=== PATIENT | female | born 1960 | race Two or more races ===

== ENCOUNTER → 2020-07-18 11:19 | Outpatient (BNVA) | payer MEDICAID, SELFPAY | PROVIDERS: PCP Family Medicine; Referring Provider Family Medicine; Visit Provider Hospitalist | DX: Z76.89 Persons encountering health services in other specified circumstances (principal) ==

== ENCOUNTER → 2020-07-31 13:03 | Outpatient (BNVA) | payer MEDICAID, SELFPAY | PROVIDERS: PCP Family Medicine; Referring Provider Family Medicine; Visit Provider Nurse Practitioner Gerontology | DX: Z76.89 Persons encountering health services in other specified circumstances (principal) ==

== ENCOUNTER 2020-08-16 10:32 | Outpatient (REF) | payer MEDICAID, SELFPAY ==
--- NOTE | 2020-08-16 11:47 | XR_ITS ---
EXAMINATION: XR CHEST CLINICAL INFORMATION: Bronchitis. COMPARISON: 09/22/2019 chest radiographs. TECHNIQUE: 2 views of the chest were obtained. FINDINGS: A tracheostomy tube is again noted in place. The lungs are clear. The heart and mediastinal structures are unremarkable. Multilevel sternotomy wires are intact. XR/XR chest 2V IMPRESSION: Stable chest. No acute cardiopulmonary process.
[2020-08-16 11:59] LABS: MANUAL DIFF FLAG NO
[2020-08-16 12:02] LABS: Basophils Percent Auto 0.4 % (0-2); Eosinophils Absolute Auto 0.5 X10*3/uL (0.0-0.4); Eosinophils Percent Auto 6.8 % (0-4); Hemoglobin 12.6 g/dl (12.0-16.0); Imm Gran Abs Auto 0.01 X10*3/uL (0.00-0.03); Imm Gran Pct Auto 0.1 % (0.0-0.4); Lymphocytes Absolute Auto 1.5 X10*3/uL (1.2-4.9); Lymphocytes Percent Auto 20.3 % (20-40); Mean Corpuscular HGB Conc 34.1 g/dl (31.0-35.0); Mean Corpuscular Hemoglobin 28.9 pg (27.0-33.0); Mean Corpuscular Volume 84.9 fL (80-98); Mean Platelet Volume 9.5 fL (9.4-12.3); Monocytes Absolute Auto 0.4 X10*3/uL (0.1-1.2); Monocytes Percent Auto 4.9 % (2-11); Neutrophils Absolute Auto 4.9 X10*3/uL (2.0-8.3); Neutrophils Percent Auto 67.5 % (45-73); Platelet Count 207 X10*3/uL (160-400); Red Blood Count 4.36 X10*6/uL (4.20-5.50); Red Cell Distribution Width 13.5 % (11.0-16.0); White Blood Count 7.3 X10*3/uL (4.8-10.8)
[2020-08-16 12:31] LABS: Alanine Aminotransferase 21 U/L (0-31); Albumin Level 4.2 g/dL (3.5-5.0); Alkaline Phosphatase 72 U/L (39-117); Anion Gap 13 (12-20); Aspartate Amino Transferase 17 U/L (5-31); Bilirubin Direct 0.2 mg/dL (0.0-0.5); Bilirubin Total 0.3 mg/dL (0.0-1.0); Blood Urea Nitrogen 18 mg/dL (9-16); Calcium 9.3 mg/dL (8.4-10.2); Carbon Dioxide 26 mmol/L (22-29); Chloride 103 mmol/L (96-108); Estimated Glomerular Filt Rate 53; Glucose Random 142 mg/dL (60-115); Potassium 4.2 mmol/l (3.3-5.1); Sodium 138 mmol/L (135-145); Total Protein 6.7 g/dL (6.5-8.0)
[2020-08-16 12:39] LABS: Erythrocyte Sedimentation Rate 21 MM/HR (0-20)
[2020-08-16 12:47] LABS: Estimated Average Glucose 137 mg/dL; Hemoglobin A1C 140.9614 umol/L; Hemoglobin A1c % 6.4 %
[2020-08-17 05:04] LABS: SARS COV2 IgG Negative (Negative)
== END 2020-08-16 10:33 | disposition home or self-care (01) ==
LOC: HO.LAB 10:32
PROVIDERS: Nurse Practitioner Gerontology; PCP Family Medicine; Visit Provider Hospitalist
DX: J40 Bronchitis, not specified as acute or chronic (principal); Z20.828 Contact with and (suspected) exposure to other viral communicable diseases; E11.22 Type 2 diabetes mellitus with diabetic chronic kidney disease; N18.30 Chronic kidney disease, stage 3 unspecified; Z79.4 Long term (current) use of insulin
CPT/HCPCS: 36415; 71046; 80048; 80076; 83036; 85025; 85652; 86769; 99212

== ENCOUNTER → 2020-09-14 09:35 | Outpatient (BNVA) | payer MEDICAID, SELFPAY | PROVIDERS: PCP Family Medicine; Visit Provider Hospitalist | DX: I25.10 Atherosclerotic heart disease of native coronary artery without angina pectoris (principal); I50.9 Heart failure, unspecified; J45.909 Unspecified asthma, uncomplicated; J39.8 Other specified diseases of upper respiratory tract; J40 Bronchitis, not specified as acute or chronic; Z93.0 Tracheostomy status | CPT/HCPCS: 99212 ==

== ENCOUNTER 2020-10-11 08:38 | Emergency (ER) | payer MEDICAID, SELFPAY ==
--- NOTE | ~2020-10-11 | XR_ITS ---
EXAMINATION: XR CHEST CLINICAL INFORMATION: Bloody secretions in trach. COMPARISON: Chest radiographs 08/16/2020, 09/22/2019, 09/07/2018, CT chest noncontrast 04/28/2018 TECHNIQUE: Portable upright AP view of the chest was obtained. FINDINGS: There is tracheostomy tube in position and sternotomy wires again noted. Enlarged cardiopericardial silhouette is stable. There is tapering at the cardiophrenic angles again seen consistent with areolar tissue on CT. The vascularity is normal. There is no vascular congestion, airspace consolidation, air bronchograms, or effusion. The hilar and mediastinal contours and bony structures are unremarkable. XR/XR chest 1V IMPRESSION: No acute intrathoracic disease.
[2020-10-11 08:42] VITALS: BP 145/85; PULSE 88; RESP 18; TEMP 36.6; O2SAT 98; BMI 37.8
--- NOTE | 2020-10-11 10:06 | ED.GENADULT ---
HPI - General Adult General Chief complaint: General Medical <WENDY Foss - Last Filed: 10/11/20 12:03> Stated complaint: bleeding from trachea <WENDY Foss - Last Filed: 10/11/20 12:03> Time Seen by Provider: 10/11/20 09:06 <WENDY Foss - Last Filed: 10/11/20 12:03> Source: patient <WENDY Foss - Last Filed: 10/11/20 12:03> Mode of arrival: ambulatory <WENDY Foss - Last Filed: 10/11/20 12:03> Limitations: language barrier <WENDY Foss - Last Filed: 10/11/20 12:03> History of Present Illness HPI narrative: 60 y/o female iwth history of tracheal stenosis, trachomalacia s/p tracheostomy since 2012, HTN, HLD, CKD III, CAD s/p CABG 2012, PTSD, anxiety, migraines, DM2 and asthma presents with small amounts of bleeding at her tracheostomy site for the last 3 days. She also reports discomfort. She at times is short of breath. She denies increase in secretions, she denies fevers. No sick contacts. She denies trauma to the site. No chest pain. <WENDY Foss - Last Filed: 10/11/20 12:03> MD complaint: trach pain and bleeding <WENDY Foss - Last Filed: 10/11/20 12:03> Onset (ago): day(s) (3) <WENDY Foss - Last Filed: 10/11/20 12:03> Location: neck <WENDY Foss - Last Filed: 10/11/20 12:03> Radiation: non-radiation <WENDY Foss - Last Filed: 10/11/20 12:03> Severity: moderate <WENDY Foss Last Filed: 10/11/20 12:03> Severity scale (1-10): 5 <WENDY Foss - Last Filed: 10/11/20 12:03> Quality: aching <WENDY Foss - Last Filed: 10/11/20 12:03> Pain Consistency: intermittent <WENDY Foss - Last Filed: 10/11/20 12:03> Relieving factors: none <WENDY Foss - Last Filed: 10/11/20 12:03> Exacerbating factors: movement <WENDY Foss - Last Filed: 10/11/20 12:03> Associated symptoms: denies other symptoms <WENDY Foss - Last Filed: 10/11/20 12:03> Treatments prior to arrival: none <WENDY Foss - Last Filed: 10/11/20 12:03> Related Data Home medications: Home Medications Medication Instructions Recorded Confirmed bupropion HCl 100 mg tablet 100 mg PO BID 07/31/20 09/14/20 cholecalciferol (vitamin D3) 50 50 mcg PO DAILY 07/31/20 09/14/20 mcg (2,000 unit) capsule fenofibrate 54 mg tablet 54 mg PO DAILY 07/31/20 09/14/20 insulin lispro 100 unit/mL See Rx Instructions SUBCUT QID ml 07/31/20 09/14/20 subcutaneous pen levothyroxine 150 mcg tablet 150 mcg PO DAILY 07/31/20 09/14/20 metformin 500 mg/5 mL oral solution 1,000 mg PO BID 07/31/20 09/14/20 omega-3 fatty acids 1,000 mg 1,000 mg PO BID 07/31/20 09/14/20 capsule Previous Rx's Medication Instructions Recorded ezetimibe 10 mg tablet 10 mg PO DAILY 30 Days #30 tab 05/23/20 isosorbide mononitrate 30 mg 30 mg PO DAILY 90 Days #90 tab 05/26/20 tablet,extended release 24 hr lisinopril 5 mg tablet 5 mg PO QAM #30 tab 06/13/20 aspirin 81 mg tablet,delayed 81 mg PO DAILY 90 Days #90 tab 06/19/20 release furosemide 40 mg tablet 40 mg PO DAILY 90 Days #90 tab 06/19/20 metoprolol tartrate 25 mg tablet 25 mg PO BID 90 Days #180 tab 06/19/20 dulaglutide 1.5 mg/0.5 mL 1.5 mg SUBCUT QWEEK 28 Days #2 ml 07/31/20 subcutaneous pen injector doxycycline hyclate 100 mg capsule 100 mg PO BID 21 Days #42 cap 08/16/20 insulin glargine U-300 conc 300 70 unit SUBCUT DAILY #6 ml 09/10/20 unit/mL (3 mL) subcutaneous pen albuterol sulfate 90 mcg/actuation 2 inh INHALATION Q6H PRN 30 Days 09/14/20 aerosol inhaler #18 g prednisone 20 mg tablet 20 mg PO DAILY 10 Days #15 tab 09/14/20 azithromycin 500 mg tablet 500 mg PO DAILY 5 Days #5 tab 10/16/20 <WENDY Foss - Last Filed: 10/11/20 12:03> Allergies/adverse reactions: Allergies Allergy/AdvReac Type Severity Reaction Status Date / Time haloperidol [Haldol] Allergy Severe rash Verified 09/14/20 12:51 Sulfa (Sulfonamide Allergy Severe Rash Verified 09/14/20 12:51 Antibiotics) sulfamethoxazole Allergy Mild ITCHING/HIV Verified 09/14/20 12:51 [From BACTRIM] ES trimethoprim [From BACTRIM] Allergy Mild ITCHING/HIV Verified 09/14/20 12:51 ES Penicillins Allergy Unknown HIVES Verified 09/14/20 12:51 From HALDOL Allergy Mild RASH Uncoded 09/14/20 12:51 <WENDY Foss - Last Filed: 10/11/20 12:03> Review of Systems Review of Systems: Constitutional: No Fever, No Chills ENT/Mouth: No sore throat, No Rhinorrhea, No Swallowing Difficulty Cardiovascular: No Chest Pain, + SOB, No Orthopnea, No Edema Respiratory: + Cough (chronic), No Sputum, No Wheezing, No dyspnea Gastrointestinal: No Nausea, No Vomiting, No Diarrhea, No abdominal Pain Musculoskeletal: No joint pain, No Myalgias Skin: No Skin Lesions, No rash Neuro: No Weakness, No Numbness, No Dizziness, No Headache Psych: + Anxiety/Panic, No Depression Heme/Lymph: No Bruising, No Lymphadenopathy, +bleeding <WENDY Foss Last Filed: 10/11/20 12:03> [facility] Past Medical History Attestation statement: The following information was validated with the patient. 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 Urinary incontinence <WENDY Foss - Last Filed: 10/11/20 12:03> Surgical History: Surgical History Hx of CABG Hx of section Hx of tracheostomy <WENDY Foss - Last Filed: 10/11/20 12:03> Family History Family History: Family History Father Diabetes CVD (cardiovascular disease) Mother Diabetes Hypertension Schizophrenia <WENDY Foss - Last Filed: 10/11/20 12:03> Social History Social History: Social History Household Members: Spouse Smoking Status: Never smoker Use of substances other than those prescribed or required for medical reasons: No Advance Directives: No Advance Directives Information Provided: Yes <WENDY Foss - Last Filed: 10/11/20 12:03> Physical Exam Vital Signs: Vital Signs: Last Vital Signs Temp 98 F 10/11/20 08:42 Pulse 88 10/11/20 08:42 Resp 18 10/11/20 08:42 BP 145/85 H 10/11/20 08:42 Pulse Ox 98 10/11/20 08:42 Body Mass Index 37.8 Appearance: Alert. Oriented X3. No acute distress. Eyes: Pupils equal, round and reactive to light. ENT: Tracheotomy in place with very scant dried blood around tracheostomy site, no active bleeding. inner cannula removed with clear blood tinged secretions, no clots. Neck: Normal inspection. Neck supple. CVS: Normal heart rate and rhythm. Pulses normal. Respiratory: No respiratory distress. Breath sounds normal. Abdomen: Obese, soft and nontender. +BS x4 Skin: Skin warm and dry. Normal skin color. Normal skin turgor. No rashes. Extremities: No lower extremity edema. Neuro: Oriented X 3. No motor deficit. No sensory deficit. <WENDY Foss - Last Filed: 10/11/20 12:03> Vital Signs: Last Vital Signs Temp 98 F 10/11/20 08:42 Pulse 88 10/11/20 08:42 Resp 18 10/11/20 08:42 BP 145/85 H 10/11/20 08:42 Pulse Ox 98 10/11/20 08:42 Body Mass Index 37.8 <Blaine Mix MD - Last Filed: 10/31/20 07:57> Course Course Course Narrative: 60 y/o female with history of longterm tracheostomy who presents with some bleeding at tracheal site. No active bleeding on arrival. No hypoxia, CXR is unremarkable. She is breathing comfortably. The inner cannula has been cleaned. RT at the bedside, cleaned area and placed some gauze around the trach. Will TT Dr. Renteria to see if he would like to change the trach while she is here. ?may be too long for her. <WENDY Foss - Last Filed: 10/11/20 12:03> I have reviewed the chart <Blaine Mix MD - Last Filed: 10/31/20 07:57> Reevaluation(s) Reevaluation #1: Patient continues to do well without signs of bleeding. No hypoxia. No response from Dr. Renteria. No immediate need to change the trach at this time. Will have her follow up in the office with him. He would like to do a bronchoscopy HARINDER, she missed a recent appointment. He will coordinate one soon, hopefully tomorrow. Patient understands to be NPO after midnight tonight for bronch tomorrow. <WENDY Foss - Last Filed: 10/11/20 12:03> Discharge Plan Discharge Clinical Impression: Stomal bleeding <WENDY Foss - Last Filed: 10/11/20 12:03> Patient Disposition: Home, Self-Care <WENDY Foss - Last Filed: 10/11/20 12:03> Instructions: Tracheostomy Care (ED) <WENDY Foss - Last Filed: 10/11/20 12:03> Additional Instructions: Your tracheotomy has no active bleeding today. Recommend using gauze to the area to help prevent irritation and bleeding. Clean or change your inner cannula at least once per day. Follow up with Dr. Renteria in the office tomorrow. He would like to do a bronchoscopy. Call his office HARINDER. Do not eat or drink anything after midnight tonight with plan for Bronchoscopy tomorrow. If you have worsening bleeding, pain or any other concerning symptom come back to the ER for further evaluation. <WENDY Foss - Last Filed: 10/11/20 12:03> Prescriptions: No Action ezetimibe 10 mg tablet 10 mg PO DAILY 30 Days Qty: 30 RF: 5 isosorbide mononitrate 30 mg tablet extended release 24 hr 30 mg PO DAILY 90 Days Qty: 90 RF: 1 lisinopril 5 mg tablet 5 mg PO QAM Qty: 30 RF: 6 furosemide [Lasix] 40 mg tablet 40 mg PO DAILY 90 Days Qty: 90 RF: 1 aspirin [Adult Low Dose Aspirin] 81 mg tablet,delayed release (DR/EC) 81 mg PO DAILY 90 Days Qty: 90 RF: 3 metoprolol tartrate 25 mg tablet 25 mg PO BID 90 Days Qty: 180 RF: 1 insulin glargine U-300 conc [Toujeo Max U-300 SoloStar] 300 unit/mL (3 mL) insulin pen 70 unit subcut DAILY Qty: 6 RF: 2 azithromycin 500 mg tablet 500 mg PO DAILY 5 Days Qty: 5 RF: 0 insulin lispro [Humalog KwikPen Insulin] 100 unit/mL insulin pen See Rx Instructions subcut QID RF: 0 metformin [Riomet] 500 mg/5 mL solution 1,000 mg PO BID RF: 0 levothyroxine 150 mcg tablet 150 mcg PO DAILY RF: 0 cholecalciferol (vitamin D3) 50 mcg (2,000 unit) capsule 50 mcg PO DAILY RF: 0 fenofibrate 54 mg tablet 54 mg PO DAILY RF: 0 omega-3 fatty acids [Fish Oil Concentrate] 1,000 mg capsule 1,000 mg PO BID RF: 0 bupropion HCl 100 mg tablet 100 mg PO BID RF: 0 Trulicity 1.5 mg/0.5 mL pen injector 1.5 mg subcut QWEEK 28 Days Qty: 2 RF: 6 doxycycline hyclate 100 mg capsule 100 mg PO BID 21 Days Qty: 42 RF: 0 prednisone 20 mg tablet 20 mg PO DAILY 10 Days Qty: 15 RF: 0 albuterol sulfate 90 mcg/actuation HFA aerosol inhaler 2 inh inhalation Q6H PRN (Reason: shortness of breath or wheezing) 30 Days Qty: 18 RF: 12 <WENDY Foss - Last Filed: 10/11/20 12:03> Referrals: Lauro Renteria MD [Physician] - 1 day <WENDY Foss - Last Filed: 10/11/20 12:03> Interventions: ED Discharge Assessment Last Done: 10/11/20 11:33 <WENDY Foss - Last Filed: 10/11/20 12:03> Discharge Date/Time: 10/11/20 11:34 <WENDY Foss - Last Filed: 10/11/20 12:03>
--- NOTE | 2020-10-11 10:42 | PC.NURSE ---
new trach cleaned by respiratory. satting 96% on ra.
== END 2020-10-11 11:34 | disposition home or self-care (01) ==
PROVIDERS: Emergency Provider Emergency Medicine; PCP Family Medicine
DX: J95.01 Hemorrhage from tracheostomy stoma (principal); E11.22 Type 2 diabetes mellitus with diabetic chronic kidney disease; I13.0 Hypertensive heart and chronic kidney disease with heart failure and stage 1 through stage 4 chronic kidney disease, or unspecified chronic kidney disease; N18.30 Chronic kidney disease, stage 3 unspecified; I50.9 Heart failure, unspecified; J45.909 Unspecified asthma, uncomplicated; Z79.84 Long term (current) use of oral hypoglycemic drugs; Z79.899 Other long term (current) drug therapy; Z87.891 Personal history of nicotine dependence
CPT/HCPCS: 71045; 99284

== ENCOUNTER 2020-10-12 09:59 | Day surgery (SDC) | payer MEDICAID, SELFPAY ==
--- NOTE | 2020-10-11 14:44 | P.CONAN_ITS ---
Documented by User: Denise Sandi 10/11/20 14:45 HPI - Anesthesia Eval Consult details Narrative: 60yo F for Bronchoscopy Fiberoptic Trach dependant Seen by cardiology at routine visit 09/14/20. No anginal sounding CP. Thought to be MSK Continue current regimen with 1 year f/u Pt cx'd self 09/27/20 [facility] Active Problems Active Problems: All Active Problems (Updated 10/11/20 @ 11:15 by WENDY Foss) Stomal bleeding (Acute) Asthma (Acute) Tracheal stenosis (Acute) Tracheostomy dependent (Acute) Type 2 diabetes mellitus with chronic kidney disease (Acute) Chronic kidney disease, stage 3 (Acute) Essential hypertension (Acute) Dyslipidemia (Acute) Hypothyroidism (Acute) CAD (coronary artery disease) (Acute) Tracheobronchitis (Acute) Past Medical History Medical History Anxiety Asthma CAD (coronary artery disease) CHF (congestive heart failure) Chronic kidney disease, stage 3 Dyslipidemia Dysphagia Essential hypertension Fibroid uterus Hypothyroidism Ischemic cardiomyopathy Tracheal stenosis 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 Urinary incontinence Family History Family History Father Diabetes CVD (cardiovascular disease) Mother Diabetes Hypertension Schizophrenia Surgical History Surgical History Hx of CABG Hx of section Hx of tracheostomy Social History Social History Household Members: Spouse Smoking Status: Never smoker Use of substances other than those prescribed or required for medical reasons: No Advance Directives: No Advance Directives Information Provided: Yes Meds Allergies Allergy/AdvReac Type Severity Reaction Status Date / Time haloperidol [Haldol] Allergy Severe rash Verified 09/14/20 12:51 Sulfa (Sulfonamide Allergy Severe Rash Verified 09/14/20 12:51 Antibiotics) sulfamethoxazole Allergy Mild ITCHING/HIV Verified 09/14/20 12:51 [From BACTRIM] ES trimethoprim [From BACTRIM] Allergy Mild ITCHING/HIV Verified 09/14/20 12:51 ES Penicillins Allergy Unknown HIVES Verified 09/14/20 12:51 From HALDOL Allergy Mild RASH Uncoded 09/14/20 12:51 Home Medications Medication Instructions Recorded Confirmed Last Taken Type bupropion HCl 100 mg tablet 100 mg PO BID 07/31/20 09/14/20 Unknown History cholecalciferol (vitamin D3) 50 50 mcg PO DAILY 07/31/20 09/14/20 Unknown History mcg (2,000 unit) capsule fenofibrate 54 mg tablet 54 mg PO DAILY 07/31/20 09/14/20 Unknown History insulin lispro 100 unit/mL See Rx Instructions SUBCUT QID ml 07/31/20 09/14/20 Unknown History subcutaneous pen levothyroxine 150 mcg tablet 150 mcg PO DAILY 07/31/20 09/14/20 Unknown History metformin 500 mg/5 mL oral solution 1,000 mg PO BID 07/31/20 09/14/20 Unknown History omega-3 fatty acids 1,000 mg 1,000 mg PO BID 07/31/20 09/14/20 Unknown History capsule Exam Exam Date and Time: October 11, 2020 1444 Pertinent Lab Results Pertinent Lab Results: Laboratory Tests 08/16/20 08/16/20 11:40 11:40 WBC 7.3 Hgb 12.6 Hct 37.0 Plt Count 207 Sodium 138 Potassium 4.2 Chloride 103 Carbon Dioxide 26 BUN 18 H Creatinine 1.06 Narrative Narrative: ECHO 2019 EF 50-55% No valve pathology RWMA cannot be r/o d/t poor cardiac definition Assessment and Plan Assessment Anesthesia Assessment: Chart Reviewed Documented by User: Medardo Booth 10/12/20 11:02 [facility] Past Medical History Medical History Anxiety Asthma CAD (coronary artery disease) CHF (congestive heart failure) Chronic kidney disease, stage 3 Dyslipidemia Dysphagia Essential hypertension Fibroid uterus Hypothyroidism Ischemic cardiomyopathy Tracheal stenosis 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 Urinary incontinence Family History Family History Father Diabetes CVD (cardiovascular disease) Mother Diabetes Hypertension Schizophrenia Surgical History Surgical History Hx of CABG Hx of section Hx of tracheostomy Social History Social History Household Members: Spouse Smoking Status: Never smoker Use of substances other than those prescribed or required for medical reasons: No Advance Directives: No Advance Directives Information Provided: Yes Meds Allergies Allergy/AdvReac Type Severity Reaction Status Date / Time haloperidol [Haldol] Allergy Severe rash Verified 09/14/20 12:51 Sulfa (Sulfonamide Allergy Severe Rash Verified 09/14/20 12:51 Antibiotics) sulfamethoxazole Allergy Mild ITCHING/HIV Verified 09/14/20 12:51 [From BACTRIM] ES trimethoprim [From BACTRIM] Allergy Mild ITCHING/HIV Verified 09/14/20 12:51 ES Penicillins Allergy Unknown HIVES Verified 09/14/20 12:51 From HALDOL Allergy Mild RASH Uncoded 09/14/20 12:51 Home Medications Medication Instructions Recorded Confirmed Last Taken Type bupropion HCl 100 mg tablet 100 mg PO BID 07/31/20 09/14/20 Unknown History cholecalciferol (vitamin D3) 50 50 mcg PO DAILY 07/31/20 09/14/20 Unknown History mcg (2,000 unit) capsule fenofibrate 54 mg tablet 54 mg PO DAILY 07/31/20 09/14/20 Unknown History insulin lispro 100 unit/mL See Rx Instructions SUBCUT QID ml 07/31/20 09/14/20 Unknown History subcutaneous pen levothyroxine 150 mcg tablet 150 mcg PO DAILY 07/31/20 09/14/20 Unknown History metformin 500 mg/5 mL oral solution 1,000 mg PO BID 07/31/20 09/14/20 Unknown History omega-3 fatty acids 1,000 mg 1,000 mg PO BID 07/31/20 09/14/20 Unknown History capsule Exam Airway Mallampati Class: III TM Dist: >3cm Neck ROM: Full Denture: Upper and Lower
[2020-10-12] VITALS (12 sets, daily range): BP systolic 108–145; BP diastolic 49–98; PULSE 86–112; RESP 17–24; TEMP 36.2–36.3; O2SAT 88–99; BMI 40.1
[2020-10-12] MEDS: Lactated Ringers 1,000 ML 50 ML IVCONT (11:16)
[2020-10-12 11:20] LABS: Glucose, Whole Blood 150 mg/dL (60-115)
--- NOTE | 2020-10-12 12:03 | P.HPSUR_ITS ---
Pre-Procedural Eval Section A The patient is an INPATIENT: No Changes since office visit: No Cold of Flu in the past 2 weeks, No New Medical Problems, No Changes in Medication and No Patient answered all questions The History & Physical has been completed within 30 days and I have reviewed it.: Yes Section B Chief Complaint: tracheostomy Relevant Family History (Specify if Yes): No Relevant Social History: None Present Medications: see Short Stay Collaborative assessment Medical History: Significant History History of Previous Operations: Relevant previous surgery/procedure and date(s) Allergies: Allergies Allergy/AdvReac Type Severity Reaction Status Date / Time haloperidol [Haldol] Allergy Severe rash Verified 09/14/20 12:51 Sulfa (Sulfonamide Allergy Severe Rash Verified 09/14/20 12:51 Antibiotics) sulfamethoxazole Allergy Mild ITCHING/HIV Verified 09/14/20 12:51 [From BACTRIM] ES trimethoprim [From BACTRIM] Allergy Mild ITCHING/HIV Verified 09/14/20 12:51 ES Penicillins Allergy Unknown HIVES Verified 09/14/20 12:51 From HALDOL Allergy Mild RASH Uncoded 09/14/20 12:51 Review of Systems Sugical H&P ROS: Negative: Constitution, Cardiovascular, Neurological, Psychiatric, Hem-Onc, Allergic/Immunologic and Gastrointestinal and Yes, Speci fy: Respiratory (hemoptysis) Exam Surgical H&P Exam: Normal: Heart, Normal: Lungs, Normal: Extremities, Normal: Abdomen, Normal: Skin and Normal: Neurological and Not Evaluated: HEENT (trach midline 8 CFN) Plan Diagnosis/Plan: Unchanged I have reviewed the history and physical and performed a pertinent physical examination on my patient. No changes have occurred unless specified.
[2020-10-12] MEDS: Albuterol/Iprat 2.5/0.5MG 3 ML AMPUL.NEB INHALE (13:08)
[2020-10-12] MEDS: ondansetron HCL 4 MG/2 ML VIAL IVPUSH (13:42)
--- NOTE | 2020-10-12 20:12 | PM.OP ---
Brief Operative Note Date of Service: 10/12/20 Pre-op diagnosis: tracheostomy dependednt, hemoptysis, tracheal stenosis Post-op diagnosis: same Procedure: trach cahnge and brmonchoscopy with bilateral washings Surgeon: Lauro Renteria MD Anesthesia: GETA Estimated blood loss (mL): 0 Pathology: none sent Condition: stable Disposition: same day
--- NOTE | 2020-10-12 20:14 | PM.OP ---
Brief Operative Note Date of Service: 10/12/20 Pre-op diagnosis: tracheal stenosis, hemoptysis, tracheostomy dependedent Post-op diagnosis: same Procedure: trach change and bronchoscopy Surgeon: Lauro Renteria MD Anesthesia: GETA Estimated blood loss (mL): 0 Pathology: none sent Condition: stable Disposition: same day
--- NOTE | 2020-10-14 00:35 | OP_ITS ---
SURGEON: Lauro Renteria MD PREOPERATIVE DIAGNOSIS: Tracheal stenosis, hemoptysis, Tracheostomy dependent. POSTOPERATIVE DIAGNOSIS: Tracheal stenosis, hemoptysis, Tracheostomy dependent, tracheobronchomalacia, and granulation tissue and proximal trachea causing the tracheal stenosis. PROCEDURE PERFORMED: ESTIMATED BLOOD LOSS: None. COMPLICATIONS: None. ANESTHESIA: General anesthesia. ASSISTANTS: SPECIMENS: ASA CLASSIFICATION: 3. INTERPRETATION: 1. Successful tracheostomy change from a fenestrated #8 Shiley tube to a #8 CFS Shiley nonfenestrated tube. 2. Bronchial washings bilaterally. DESCRIPTION OF PROCEDURE: After the patient was adequately sedated with some fentanyl, the tracheostomy was manipulated. This was a #8 fenestrated Shiley tracheostomy. It appears that there was some granulation tissue growing into the fenestration. Very gently with a suction catheter, the tissue was removed from the fenestration from the inside, and therefore the tracheostomy was able to be removed without any evidence of any bleeding. It was then switched over to a #8 CFS nonfenestrated uncuffed tracheostomy without any complications. Afterwards, the bronchoscopy was done. The patient has significant tracheobronchomalacia. The tracheobronchial tree was examined to the subsegmental level. The patient did not have any evidence of bleeding in the airways, although the mucosa was friable. The patient did have some minimal secretions noted. Bronchial washings were done and mucus pluggings were removed. Bilateral bronchial washings were sent for culture. Afterwards, the bronchoscope was then removed. The total endoscopic time approximately 10 minutes. The patient tolerated the procedure well. Vital signs were stable throughout the procedure. MD MARAH Sheets/TRUDY / [id number]
== END 2020-10-12 15:22 | disposition home or self-care (01) ==
PROVIDERS: PCP Family Medicine; Visit Provider Hospitalist
PROC: 0BJ08ZZ Inspection of Tracheobronchial Tree, Via Natural or Artificial Opening Endoscopic (ICD-10-PCS; CPT 31622; principal; 2020-10-12 12:00)
DX: J39.8 Other specified diseases of upper respiratory tract (principal); R04.2 Hemoptysis; Z93.0 Tracheostomy status; J45.909 Unspecified asthma, uncomplicated; E11.22 Type 2 diabetes mellitus with diabetic chronic kidney disease; I13.0 Hypertensive heart and chronic kidney disease with heart failure and stage 1 through stage 4 chronic kidney disease, or unspecified chronic kidney disease; N18.9 Chronic kidney disease, unspecified; I50.9 Heart failure, unspecified; B96.3 Hemophilus influenzae [H. influenzae] as the cause of diseases classified elsewhere; Z79.4 Long term (current) use of insulin; Z79.82 Long term (current) use of aspirin; Z79.899 Other long term (current) drug therapy; Z88.0 Allergy status to penicillin; Z88.2 Allergy status to sulfonamides; Z88.8 Allergy status to other drugs, medicaments and biological substances
CPT/HCPCS: 31635; 82947; 87071; 87077; 87185; 87205; A7520; J0171; J2405; J3010

== ENCOUNTER → 2020-11-01 11:25 | Outpatient (BNVA) | payer MEDICAID, SELFPAY | PROVIDERS: PCP Family Medicine; Visit Provider Nurse Practitioner Gerontology ==

== ENCOUNTER → 2021-03-13 13:36 | Outpatient (BNVA) | payer MEDICAID, SELFPAY | PROVIDERS: PCP Family Medicine; Visit Provider Nurse Practitioner Gerontology ==

== ENCOUNTER 2021-03-15 12:19 | Outpatient (REF) | payer MEDICAID, SELFPAY ==
--- NOTE | ~2021-03-15 | XR_ITS ---
EXAMINATION: XR CHEST CLINICAL INFORMATION: Shortness of breath. COMPARISON: 10/11/2020 portable chest. TECHNIQUE: 2 views of the chest were obtained. FINDINGS: Support devices: Tracheostomy tube in place. Multilevel sternotomy wires intact. The lungs are clear. There are no pleural effusions. The heart and mediastinal structures are unremarkable. XR/XR chest 2V IMPRESSION: No acute cardiopulmonary process.
[2021-03-15 13:39] LABS: Estimated Average Glucose 148 mg/dL; Hemoglobin A1c % 6.8 %
[2021-03-15 14:24] LABS: Alanine Aminotransferase 21 U/L (0-31); Albumin Level 4.2 g/dL (3.5-5.0); Alkaline Phosphatase 77 U/L (39-117); Anion Gap 16 (12-20); Aspartate Amino Transferase 15 U/L (5-31); Bilirubin Total 0.4 mg/dL (0.0-1.0); Blood Urea Nitrogen 20 mg/dL (9-16); Calcium 9.4 mg/dL (8.4-10.2); Carbon Dioxide 26 mmol/L (22-29); Chloride 104 mmol/L (96-108); Cholesterol 162 mg/dL; Estimated Glomerular Filt Rate 47; Glucose Fasting 148 mg/dL (60-99); HDL Cholesterol 48 mg/dL; LDL Cholesterol Calculated 67 mg/dl; Potassium 4.8 mmol/L (3.3-5.1); Sodium 141 mmol/L (135-145); Total Protein 6.7 g/dL (6.5-8.0); Triglycerides 238 mg/dL
[2021-03-15 14:35] LABS: Creatinine Urine 146.57 mg/dL; Microalbum/Creatinine Ratio Ur 4.7 ug/mg cr
[2021-03-15 14:46] LABS: Free T4 (Free Thyroxine) 0.78 ng/dL (0.71-1.85)
[2021-03-17 12:01] LABS: LDL Cholesterol Direct 79 mg/dL (<100)
== END 2021-03-15 12:20 | disposition home or self-care (01) ==
LOC: HO.LAB 12:19
PROVIDERS: PCP Family Medicine; Visit Provider Nurse Practitioner Gerontology
DX: J40 Bronchitis, not specified as acute or chronic (principal); E11.22 Type 2 diabetes mellitus with diabetic chronic kidney disease; N18.30 Chronic kidney disease, stage 3 unspecified; Z79.4 Long term (current) use of insulin
CPT/HCPCS: 36415; 71046; 80053; 80061; 82043; 83036; 83721; 84439; 84443

== ENCOUNTER 2021-03-26 | Outpatient (REF) | payer MEDICAID, SELFPAY | END 2021-03-26 00:01 | LOC: CF | PROVIDERS: Visit Provider Hospitalist | DX: J40 Bronchitis, not specified as acute or chronic (principal); J39.8 Other specified diseases of upper respiratory tract; Z93.0 Tracheostomy status | CPT/HCPCS: 99212 ==

== ENCOUNTER 2021-03-26 15:26 | Outpatient (REF) | payer MEDICAID, SELFPAY ==
--- NOTE | ~2021-03-26 | XR_ITS ---
EXAMINATION: XR CHEST CLINICAL INFORMATION: J40 - Bronchitis, not specified as acute or chronic COMPARISON: Chest radiographs 03/15/2021, 10/11/2020 TECHNIQUE: 2 views of the chest were obtained. FINDINGS: Radiographs are slightly underpenetrated and there is motion artifact on the frontal view. Again, there has been prior median sternotomy and tracheostomy. The cardiopericardial silhouette is stable. The vascularity is normal. There is no vascular congestion, airspace consolidation, or definite groundglass opacity. Tapering at the cardiophrenic angles is stable. The costophrenic sulci are clear. No effusion. The hilar and mediastinal contours and bony structures are unremarkable. XR/XR chest 2V IMPRESSION: No acute intrathoracic disease. Mild motion artifact.
== END 2021-03-26 15:27 | disposition home or self-care (01) ==
LOC: HO.XRAY 15:26
PROVIDERS: PCP Family Medicine; Visit Provider Hospitalist
DX: J40 Bronchitis, not specified as acute or chronic (principal)
CPT/HCPCS: 71046

== ENCOUNTER → 2021-05-16 13:15 | Outpatient (BNVA) | payer MEDICAID, SELFPAY | PROVIDERS: PCP Family Medicine; Referring Provider Family Medicine; Visit Provider Nurse Practitioner Family | DX: I25.10 Atherosclerotic heart disease of native coronary artery without angina pectoris (principal); I50.9 Heart failure, unspecified; I10 Essential (primary) hypertension; E78.5 Hyperlipidemia, unspecified | CPT/HCPCS: 93005; 99212 ==

== ENCOUNTER → 2021-05-18 15:15 | Outpatient (BNVA) | payer MEDICAID, SELFPAY | PROVIDERS: PCP Family Medicine; Visit Provider Hospitalist | DX: J40 Bronchitis, not specified as acute or chronic (principal); J39.8 Other specified diseases of upper respiratory tract; Z93.0 Tracheostomy status | CPT/HCPCS: 99212 ==

== ENCOUNTER 2021-05-24 07:40 | Day surgery (SDC) | payer MEDICAID, SELFPAY ==
--- NOTE | 2021-05-23 11:05 | HO.ANESPROP2 ---
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 (Acute) Chronic kidney disease, stage 3 (Acute) Essential hypertension (Acute) Dyslipidemia (Acute) Hypothyroidism (Acute) CAD (coronary artery disease) (Acute) Tracheobronchitis (Acute) Past Medical History Medical History Anxiety Asthma CAD (coronary artery disease) CHF (congestive heart failure) Chronic kidney disease, stage 3 Dyslipidemia Dysphagia Essential hypertension Fibroid uterus Hypothyroidism Ischemic cardiomyopathy Tracheal stenosis Tracheobronchitis 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 Urinary incontinence Family History Family History Father Diabetes CVD (cardiovascular disease) Mother Diabetes Hypertension Schizophrenia Surgical History Surgical History Hx of CABG Hx of section Hx of tracheostomy Social History Social History Household Members: Spouse Alcohol intake: never Patient Tobacco Use Status: Never used Tobacco Use of substances other than those prescribed or required for medical reasons: No Are you DNR?: No Advance Directives: No Advance Directives Information Provided: Yes Recently lost weight without trying: No Nutrition Risks: No Nutritional Risk Meds Allergies Allergy/AdvReac Type Severity Reaction Status Date / Time haloperidol [Haldol] Allergy Severe rash Verified 05/18/21 15:23 Penicillins Allergy Severe HIVES Verified 05/18/21 15:23 Sulfa (Sulfonamide Allergy Severe Rash Verified 05/18/21 15:23 Antibiotics) sulfamethoxazole Allergy Mild ITCHING/HIV Verified 05/18/21 15:23 [From BACTRIM] ES trimethoprim [From BACTRIM] Allergy Mild ITCHING/HIV Verified 05/18/21 15:23 ES From HALDOL Allergy Mild RASH Uncoded 05/18/21 15:23 Home Medications Medication Instructions Recorded Confirmed Last Taken Type bupropion HCl 100 mg tablet 100 mg PO BID 07/31/20 05/16/21 Unknown History cholecalciferol (vitamin D3) 50 50 mcg PO DAILY 07/31/20 05/16/21 Unknown History mcg (2,000 unit) capsule fenofibrate 54 mg tablet 54 mg PO DAILY 07/31/20 05/16/21 Unknown History levothyroxine 150 mcg tablet 150 mcg PO DAILY 07/31/20 05/16/21 Unknown History omega-3 fatty acids 1,000 mg 1,000 mg PO BID 07/31/20 05/16/21 Unknown History capsule (Fish Oil Concentrate) Exam Exam Date and Time: May 23, 2021 1105 Pertinent Lab Results Pertinent Lab Results: Laboratory Tests ? 08/16/20 03/15/21 ? 11:40 12:45 WBC ?7.3 ? Hgb ?12.6 ? Hct ?37.0 ? Plt Count ?207 ? Sodium ? ?141 Potassium ? ?4.8 Chloride ? ?104 Carbon Dioxide ? ?26 BUN ? ?20 H Creatinine ? 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 Urinary incontinence Family History Family History Father Diabetes CVD (cardiovascular disease) Mother Diabetes Hypertension Schizophrenia Family history of problems with anesthesia: No Surgical History Surgical History Hx of CABG Hx of section Hx of tracheostomy History of Problems with Anesthesia: No Social History Social History Household Members: Spouse Alcohol intake: never Patient Tobacco Use Status: Never used Tobacco Use of substances other than those prescribed or required for medical reasons: No Are you DNR?: No Advance Directives: No Advance Directives Information Provided: Yes Recently lost weight without trying: No Nutrition Risks: No Nutritional Risk Meds Allergies Allergy/AdvReac Type Severity Reaction Status Date / Time haloperidol [Haldol] Allergy Severe rash Verified 05/18/21 15:23 Penicillins Allergy Severe HIVES Verified 05/18/21 15:23 Sulfa (Sulfonamide Allergy Severe Rash Verified 05/18/21 15:23 Antibiotics) sulfamethoxazole Allergy Mild ITCHING/HIV Verified 05/18/21 15:23 [From BACTRIM] ES trimethoprim [From BACTRIM] Allergy Mild ITCHING/HIV Verified 05/18/21 15:23 ES From HALDOL Allergy Mild RASH Uncoded 05/18/21 15:23 Home Medications Medication Instructions Recorded Confirmed Last Taken Type bupropion HCl 100 mg tablet 100 mg PO BID 07/31/20 05/16/21 Unknown History cholecalciferol (vitamin D3) 50 50 mcg PO DAILY 07/31/20 05/16/21 Unknown History mcg (2,000 unit) capsule fenofibrate 54 mg tablet 54 mg PO DAILY 07/31/20 05/16/21 Unknown History levothyroxine 150 mcg tablet 150 mcg PO DAILY 07/31/20 05/16/21 Unknown History omega-3 fatty acids 1,000 mg 1,000 mg PO BID 07/31/20 05/16/21 Unknown History capsule (Fish Oil Concentrate) Exam Airway Other: Trach in situ Assessment and Plan Assessment Anesthesia Assessment: Anesthesia Plan Discussed Final Anesthetic Review Family History of Problems with Anesthesia: No History of Problems with Anesthesia: No NPO: Yes ASA Class: III and IV Final Preanesthetic Review: No Changes in Pt Med Stat, Meds/Allgs Chart Reviewed, Consent Obtained/Reviewed and Anes Risks/Benef Reviewed Patient Risk: High Procedure Risk: Low Anesthetic Plan Anesthetic Plan: MAC: Disposition: Standard PACU
[2021-05-24] VITALS (9 sets, daily range): BP systolic 106–151; BP diastolic 68–83; PULSE 75–88; RESP 16–20; TEMP 36.1–36.3; O2SAT 93–99; BMI 40.3
[2021-05-24 07:59] LABS: Glucose, Whole Blood 105 mg/dL (60-115)
--- NOTE | 2021-05-24 08:08 | MHC.SHP ---
Pre-Procedural Eval Section A Date of Service: 05/24/21 The patient is an INPATIENT: No Changes since office visit: No Cold of Flu in the past 2 weeks, No New Medical Problems, No Changes in Medication and No Patient answered all questions Section B Chief Complaint: stenosis of larynx Allergies: Allergies Allergy/AdvReac Type Severity Reaction Status Date / Time haloperidol [Haldol] Allergy Severe rash Verified 05/18/21 15:23 Penicillins Allergy Severe HIVES Verified 05/18/21 15:23 Sulfa (Sulfonamide Allergy Severe Rash Verified 05/18/21 15:23 Antibiotics) sulfamethoxazole Allergy Mild ITCHING/HIV Verified 05/18/21 15:23 [From BACTRIM] ES trimethoprim [From BACTRIM] Allergy Mild ITCHING/HIV Verified 05/18/21 15:23 ES From HALDOL Allergy Mild RASH Uncoded 05/18/21 15:23 Plan I have reviewed the history and physical and performed a pertinent physical examination on my patient. No changes have occurred unless specified.
[2021-05-24] MEDS: Lactated Ringers 1,000 ML 50 ML IVCONT (08:16)
[2021-05-24] MEDS: Albuterol Sulfate (0.083%) 2.5 MG/3 ML VIAL.NEB INHALE (09:15)
--- NOTE | 2021-05-24 12:49 | PM.OP ---
Brief Operative Note Date of Service: 05/24/21 Procedure: Bronchoscopy with therapeutic suctioning Surgeon: Lauro Renteria MD Anesthesia: GETA Was an Procurement Specialist used for this Procedure?: No Estimated blood loss (mL): 0 Pathology: none sent Condition: stable Disposition: same day
--- NOTE | 2021-05-24 19:25 | OP_ITS ---
SURGEON: Lauro Renteria MD PREOPERATIVE DIAGNOSIS: POSTOPERATIVE DIAGNOSIS: PROCEDURE PERFORMED: ESTIMATED BLOOD LOSS: COMPLICATIONS: ANESTHESIA: General anesthesia. ASSISTANTS: SPECIMENS: PREOPERATIVE DIAGNOSES: Tracheal stenosis and tracheomalacia. POSTOPERATIVE DIAGNOSES: Tracheal stenosis and tracheomalacia. CONSENT: The consent was obtained from the patient. The patient understood the risks and benefits. We reviewed all the alternatives. DESCRIPTION OF PROCEDURE: After the patient was adequately sedated and vented, the flexible digital bronchoscope was inserted via the tracheostomy to the level of the trachea. Trachea appeared better, less cobblestoning, less secretions, less inflammation, still having some degree of tracheobronchomalacia. The tracheomalacia could not be assessed completely due to the positive pressure ventilation. The patient does have evidence of tracheobronchitis that appears to be chronic. She had moderate amount of secretions that were difficult to suction. Using saline, therapeutic suctioning was provided through all her airways up to the subsegmental level. No evidence of any endobronchial lesions or masses noted. All secretions were clear. After the therapeutic suctioning, the bronchoscope was then removed. Current #8 CFS Shiley tracheostomy was replaced with a #8 Portex DIC without any complications. Afterwards, I confirmed placement with a bronchoscopy very well. The patient tolerated the change well. After that, the procedure was terminated. The total endoscopic time approximately 10 minutes. The patient tolerated it well. Postop procedure, she did have some wheezing. She did receive an albuterol nebulized treatment with good effect. INTERPRETATION: 1. Successful therapeutic suctioning. 2. Bronchial washings bilaterally, sent for Gram stain and culture. 3. Tracheostomy change from a #8 CFS Shiley to a #8 DIC Portex uncuffed. Lauro Renteria MD MR/MODL / [id number]
== END 2021-05-24 10:18 | disposition home or self-care (01) ==
PROVIDERS: PCP Family Medicine; Visit Provider Hospitalist
PROC: 0BJ08ZZ Inspection of Tracheobronchial Tree, Via Natural or Artificial Opening Endoscopic (ICD-10-PCS; CPT 31622; principal; 2021-05-24 08:00)
DX: J39.8 Other specified diseases of upper respiratory tract (principal); J04.10 Acute tracheitis without obstruction; B95.61 Methicillin susceptible Staphylococcus aureus infection as the cause of diseases classified elsewhere; J40 Bronchitis, not specified as acute or chronic; Z93.0 Tracheostomy status; T81.89XA Other complications of procedures, not elsewhere classified, initial encounter; R06.2 Wheezing; F41.1 Generalized anxiety disorder; I25.10 Atherosclerotic heart disease of native coronary artery without angina pectoris; Z95.1 Presence of aortocoronary bypass graft; I13.0 Hypertensive heart and chronic kidney disease with heart failure and stage 1 through stage 4 chronic kidney disease, or unspecified chronic kidney disease; I50.9 Heart failure, unspecified; N18.30 Chronic kidney disease, stage 3 unspecified; E11.22 Type 2 diabetes mellitus with diabetic chronic kidney disease; Z79.4 Long term (current) use of insulin; Z79.899 Other long term (current) drug therapy; Z88.0 Allergy status to penicillin; Z88.2 Allergy status to sulfonamides; Z88.8 Allergy status to other drugs, medicaments and biological substances
CPT/HCPCS: 31645; 31502; 82947; 87071; 87205; 94640; J0171; J1100; J2250; J2370; J2405; J3010

== ENCOUNTER 2022-01-15 14:55 | Outpatient (REF) | payer MEDICAID, SELFPAY ==
[2022-01-15 16:09] LABS: MANUAL DIFF FLAG NO
[2022-01-15 16:13] LABS: Basophils Percent Auto 0.4 % (0-2); Eosinophils Absolute Auto 0.4 X10*3/uL (0.0-0.4); Hematocrit 35.1 % (37.0-47.0); Hemoglobin 11.4 g/dl (12.0-16.0); Imm Gran Abs Auto 0.01 X10*3/uL (0.00-0.03); Imm Gran Pct Auto 0.2 % (0.0-0.4); Lymphocytes Absolute Auto 1.2 X10*3/uL (1.2-4.9); Lymphocytes Percent Auto 24.7 % (20-40); Mean Corpuscular HGB Conc 32.5 g/dl (31.0-35.0); Mean Corpuscular Hemoglobin 28.6 pg (27.0-33.0); Mean Corpuscular Volume 88.2 fL (80.0-98.0); Mean Platelet Volume 9.5 fL (9.4-12.3); Monocytes Absolute Auto 0.3 X10*3/uL (0.1-1.2); Monocytes Percent Auto 5.8 % (2-11); Neutrophils Absolute Auto 3.1 x10*3/uL (2.0-8.3); Neutrophils Percent Auto 61.9 % (45-73); Platelet Count 161 X10*3/uL (160-400); Red Blood Count 3.98 X10*6/uL (4.20-5.50); Red Cell Distribution Width 13.7 % (11.0-16.0)
[2022-01-15 16:14] LABS: Venous Blood Gas Refer to POC result
[2022-01-15 16:17] LABS: VBG pH 7.47 (7.32-7.43)
[2022-01-15 16:18] LABS: VBG Base Excess 2.1 mmol/L; VBG HCO3 25 mmol/L (22-26); VBG pCO2 34 mmHg; VBG pO2 55 mmHg
[2022-01-15 16:40] LABS: Alanine Aminotransferase 22 U/L (0-31); Albumin Level 4.1 g/dL (3.5-5.0); Alkaline Phosphatase 62 U/L (39-117); Anion Gap 12 (12-20); Aspartate Amino Transferase 17 U/L (5-31); Bilirubin Direct < 0.2 mg/dL (0.0-0.5); Bilirubin Total 0.3 mg/dL (0.0-1.0); Blood Urea Nitrogen 18 mg/dL (9-16); Calcium 9.4 mg/dL (8.4-10.2); Carbon Dioxide 25 mmol/L (22-29); Chloride 108 mmol/L (96-108); Estimated Glomerular Filt Rate 60; Glucose Random 90 mg/dL (60-115); Potassium 4.4 mmol/L (3.3-5.1); Sodium 141 mmol/L (135-145); Total Protein 6.7 g/dL (6.5-8.0)
[2022-01-15 17:05] LABS: Erythrocyte Sedimentation Rate 19 MM/HR (0-20)
[2022-01-17 14:06] LABS: Immunoglobulin E 531 kU/L (<OR=114)
== END 2022-01-15 14:56 | disposition home or self-care (01) ==
LOC: HO.LAB 14:55
PROVIDERS: PCP Family Medicine; Visit Provider Hospitalist
DX: J40 Bronchitis, not specified as acute or chronic (principal); J39.8 Other specified diseases of upper respiratory tract; Z43.0 Encounter for attention to tracheostomy
CPT/HCPCS: 36415; 80048; 80076; 82785; 82803; 85025; 85652; 99212

== ENCOUNTER 2022-03-14 11:43 | Outpatient (REF) | payer MEDICAID, SELFPAY ==
--- NOTE | ~2022-03-14 | XR_ITS ---
EXAMINATION: XR CHEST CLINICAL INFORMATION: Unspecified asthma COMPARISON: Chest 03/26/2021 TECHNIQUE: 2 views of the chest were obtained. FINDINGS: The lungs are well-expanded and clear of acute process. Heart size and pulmonary vascularity is normal. No gross bony abnormality seen. There is a tracheostomy tube in place. XR/XR chest 2V IMPRESSION: Unremarkable chest exam.
== END 2022-03-14 11:44 | disposition home or self-care (01) ==
LOC: HO.XRAY 11:43
PROVIDERS: PCP Family Medicine; Visit Provider Hospitalist
DX: J39.8 Other specified diseases of upper respiratory tract (principal); J45.909 Unspecified asthma, uncomplicated; Z93.0 Tracheostomy status
CPT/HCPCS: 71046; 87070; 87205; 99212

== ENCOUNTER → 2022-04-15 14:47 | Outpatient (BNVA) | payer MEDICAID, SELFPAY | PROVIDERS: PCP Family Medicine; Visit Provider Internal Medicine Cardiovascular Disease | DX: I25.10 Atherosclerotic heart disease of native coronary artery without angina pectoris (principal); I50.9 Heart failure, unspecified; Z79.899 Other long term (current) drug therapy | CPT/HCPCS: 93005; 99212 ==

== ENCOUNTER → 2022-05-06 09:45 | Outpatient (BNVA) | payer MEDICAID, SELFPAY | PROVIDERS: PCP Family Medicine; Visit Provider Hospitalist | DX: J40 Bronchitis, not specified as acute or chronic (principal); J39.8 Other specified diseases of upper respiratory tract; J45.909 Unspecified asthma, uncomplicated; Z79.899 Other long term (current) drug therapy; Z93.0 Tracheostomy status | CPT/HCPCS: 99212 ==

== ENCOUNTER 2022-07-15 10:22 | Outpatient (REF) | payer MEDICAID, SELFPAY ==
[2022-07-15 10:40] LABS: MANUAL DIFF FLAG NO
[2022-07-15 11:04] LABS: Basophils Percent Auto 0.5 % (0-2); Eosinophils Absolute Auto 0.4 X10*3/uL (0.0-0.4); Eosinophils Percent Auto 6.7 % (0-4); Hematocrit 34.8 % (37.0-47.0); Hemoglobin 11.3 g/dl (12.0-16.0); Imm Gran Abs Auto 0.02 X10*3/uL (0.00-0.03); Imm Gran Pct Auto 0.4 % (0.0-0.4); Lymphocytes Absolute Auto 1.6 X10*3/uL (1.2-4.9); Lymphocytes Percent Auto 28.5 % (20-40); Mean Corpuscular HGB Conc 32.5 g/dl (31.0-35.0); Mean Corpuscular Hemoglobin 27.6 pg (27.0-33.0); Mean Corpuscular Volume 85.1 fL (80.0-98.0); Mean Platelet Volume 9.7 fL (9.4-12.3); Monocytes Absolute Auto 0.4 X10*3/uL (0.1-1.2); Monocytes Percent Auto 6.7 % (2-11); Neutrophils Absolute Auto 3.1 x10*3/uL (2.0-8.3); Neutrophils Percent Auto 57.2 % (45-73); Platelet Count 178 X10*3/uL (160-400); Red Blood Count 4.09 X10*6/uL (4.20-5.50); Red Cell Distribution Width 13.8 % (11.0-16.0); White Blood Count 5.5 X10*3/uL (4.8-10.8)
[2022-07-18 14:02] LABS: Rast Allergen SEE COMMENTS
== END 2022-07-15 10:23 | disposition home or self-care (01) ==
LOC: HO.LAB 10:22
PROVIDERS: PCP Family Medicine; Visit Provider Hospitalist
DX: Z01.82 Encounter for allergy testing (principal); J40 Bronchitis, not specified as acute or chronic; J39.8 Other specified diseases of upper respiratory tract; Z93.0 Tracheostomy status
CPT/HCPCS: 36415; 82785; 85025; 86003; 99212

== ENCOUNTER → 2022-10-21 14:51 | Outpatient (BNVA) | payer MEDICAID, SELFPAY | PROVIDERS: PCP Family Medicine; Visit Provider Hospitalist | DX: Z43.0 Encounter for attention to tracheostomy (principal); J40 Bronchitis, not specified as acute or chronic; J39.8 Other specified diseases of upper respiratory tract; J45.41 Moderate persistent asthma with (acute) exacerbation | CPT/HCPCS: 99212 ==

== ENCOUNTER → 2022-12-23 14:23 | Outpatient (BNVA) | payer MEDICAID, SELFPAY | PROVIDERS: PCP Family Medicine; Visit Provider Hospitalist | DX: J45.41 Moderate persistent asthma with (acute) exacerbation (principal); J40 Bronchitis, not specified as acute or chronic; J39.8 Other specified diseases of upper respiratory tract; Z93.0 Tracheostomy status | CPT/HCPCS: 99212 ==

== ENCOUNTER → 2023-01-14 11:32 | Outpatient (BNVA) | payer MEDICAID, SELFPAY | PROVIDERS: PCP Family Medicine; Visit Provider Hospitalist | DX: Z71.89 Other specified counseling (principal); J45.40 Moderate persistent asthma, uncomplicated | CPT/HCPCS: 99211 ==

== ENCOUNTER → 2023-02-13 12:59 | Outpatient (BNVA) | payer MEDICAID, SELFPAY | PROVIDERS: PCP Family Medicine; Referring Provider Family Medicine; Visit Provider Internal Medicine Cardiovascular Disease | DX: I25.10 Atherosclerotic heart disease of native coronary artery without angina pectoris (principal); I50.9 Heart failure, unspecified | CPT/HCPCS: 93005; 99212 ==

== ENCOUNTER → 2023-02-14 13:29 | Outpatient (BNVA) | payer MEDICAID, SELFPAY | PROVIDERS: PCP Family Medicine; Visit Provider Hospitalist | DX: J40 Bronchitis, not specified as acute or chronic (principal); J45.909 Unspecified asthma, uncomplicated; J39.8 Other specified diseases of upper respiratory tract; Z93.0 Tracheostomy status | CPT/HCPCS: 99212 ==

== ENCOUNTER 2023-05-09 14:43 | Outpatient (AMB) | payer MEDICAID, SELFPAY ==
[2023-05-09 14:51] VITALS: BP 120/70; PULSE 79; O2SAT 95; BMI 39.1
--- NOTE | 2023-05-09 14:51 | MHC.OFFVIS ---
Intake Vital Signs 05/09/23 14:51 Height 5 ft 4 in Weight 228 lb BMI 39.1 BP 120/70 Blood Pressure Location Lt brachial Position Sitting Pulse 79 Pulse Source Pulse Oximeter Pulse Oximetry (%) 95 Oxygen Delivery Method Room Air Intake Visit Reasons: resp failure Allergies haloperidol [Haldol] Allergy (Severe, Verified 05/09/23 14:55) rash Penicillins Allergy (Severe, Verified 05/09/23 14:55) HIVES Sulfa (Sulfonamide Antibiotics) Allergy (Severe, Verified 05/09/23 14:55) Rash sulfamethoxazole [From BACTRIM] Allergy (Mild, Verified 05/09/23 14:55) ITCHING/HIVES trimethoprim [From BACTRIM] Allergy (Mild, Verified 05/09/23 14:55) ITCHING/HIVES From HALDOL Allergy (Mild, Uncoded 05/09/23 14:55) RASH HPI HPI Comments History of Present Illness Details The patient is a 63-year-old woman with a known history of tracheal stenosis status post tracheostomy. She has had multiple issues with her tracheostomy due to tracheomalacia and also significant tracheitis. She has been culture positive for Staph aureus. She has responded well to doxycycline in the past. In her room lately she has been having more respiratory issues and difficulty breathing with her tracheostomy. She was supposed to get a tracheostomy change today a [facility] but it was canceled. The patient is nonverbal due to her tracheostoma. Her OFFICE SERVICES SPECIALIST feels like she needs to have bronchoscopy because of her secretions. will plan for her to come in next week for tracheostomy change and a chest x-ray. . 10/21/2022 the patient is here for a pulmonary follow-up visit. She is having hard time with her new tracheostomy. She went from an 8 Portex DIC to a Shiley 8 mm outer diameter. Now she has a hard time when she is eating and also she has a hard time speaking likely because the outer diameter is significantly larger. She also has increased cough with mucus production making hard for her to breathe. Seems like the patient benefits from my smaller outer diameter in view of her major complaints. She also has likely a recurrent tracheitis that she seems to continue to develop. We did have a Shiley 7.5 mm which I switched her to with the hope that she could breathe better a rounded and still have enough of an airway to be able to suction and cough her secretions. I am hopeful that this is a better size for her. In the meantime I will send a prednisone antibiotics to the pharmacy to treat her tracheitis. She needs to continue to use her trach collar mask for her secretions and avoiding drying of her airways. She also continues use her nebulizer for her significant bronchospasms in asthma symptoms. 12/23/2022 the patient is here for pulmonary follow-up visit. She still struggling with her breathing. She continues to have significant chest tightness and cough. It also makes it hard because she has the tracheostomy that makes it even harder to cough. She also has some degree of tracheobronchomalacia from her chronic airway disease. She has required prednisone multiple times already this year because of the chest tightness and wheezing. We did test her allergies during the last few visits. The patient did have allergies to multiple environmental factors. This also includes mold. Her IgE levels have been significantly elevated between 500-800 in addition to that her eosinophils are elevated. Based on her ongoing prednisone need and her significant asthma and respiratory symptoms I do believe that she will be a good candidate for biologic therapy. The patient has a hard time with prednisone specially because she has diabetes has been on insulin. Therefore will go ahead and start her on Dupixent as a good option to minimize her flare ups. The patient has a tracheostomy. She is providing trach care. She is going to go tomorrow to change it at [facility]. 05/09/2023 the patient is here for a pulmonary follow-up visit. She is getting her tracheostomy changed at [facility]. She has not been getting any inner cannulas to replace her current once. I will request applies from her [email or web address] company. She continues to have a cough. Also some chest tightness. Although she did start her biologic therapy and already her asthma seems to be better controlled. I am hopeful that the patient does not need as much prednisone. She is having increase chest congestion with more secretions from her tracheostomy. Will go ahead and place her on azithromycin to see if we can improve her secretions. 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 Urinary incontinence Surgical History Hx of CABG Hx of section Hx of tracheostomy Family History Father Diabetes CVD (cardiovascular disease) Mother Diabetes Hypertension Schizophrenia Social History Household Members: Spouse Alcohol intake: never Patient Tobacco Use Status: Never used Tobacco Review of Systems Const Denies night sweats ENT Denies neck pain Card Denies chest pain and Reports dyspnea on exertion Resp Denies change in phlegm color, Reports chest congestion, Reports cough, Denies hemoptysis and Reports dyspnea on exertion GI Denies abdominal pain Musc Denies no additional complaints and Denies neck pain Neuro Denies Neuro-related abnormal movements Psych Denies no additional complaints Dick/Lymph Denies easy bleeding and Denies lymphadenopathy Physical Exam Vital Signs: Last Vital Signs Pulse 79 05/09/23 14:51 BP 120/70 05/09/23 14:51 Pulse Ox 95 05/09/23 14:51 Oxygen Delivery Method Room Air 05/09/23 14:51 BMI result Body Mass Index 39.1 Const General: alert HEENT General nose exam: Abnormal external nose present and Nasal discharge present Eyes Pupils: Equal, round and reactive pupils present Neck Neck: Yes normal visual inspection, Yes full ROM, Yes no lymphadenopathy and Yes tracheostomy present (#8 DIC uncuffed) Chest Chest palpation & inspection: normal inspection of the chest Resp Auscultation: no wheezes and diminished lung sounds Cardio Rate: regular rate Rhythm: regular rhythm Heart sounds: S1 normal heart sound present and S2 normal heart sound present GI Palpation (GI): Soft to palpation and nontender Auscultation: normal bowel sounds General: Yes no CVA tenderness Back/Spine/Pelvis Back: no CVA tenderness Skin General skin exam: rashes and/or lesions noted Neuro Cranial nerves: Yes Equal, round and reactive pupils present Assessment & Plan Assessment & Plan (1) Tracheobronchitis: Code(s): J40 - Bronchitis, not specified as acute or chronic (2) Tracheal stenosis: Comment: chronic Code(s): J39.8 - Other specified diseases of upper respiratory tract (3) Tracheostomy dependent: Comment: s/p tracheostomy change today during the visit. No complications noted Code(s): Z93.0 - Tracheostomy status (4) Asthma: Code(s): J45.909 - Unspecified asthma, uncomplicated Qualifiers: Asthma complication type: uncomplicated Asthma persistence: persistent Asthma severity: moderate Qualified Code(s): J45.40 - Moderate persistent asthma, uncomplicated Plan Continue CPT with nebulized therapy twice a day cont Symbicort with spacer via trach continue albuterol hypertonic saline tracheostomy care: Medtronic 7.5mm start Azithromycin MWF continue Dupixent Allergy medicine: Claritin and Singulair Follow-up in 3-4 months Medications: New azithromycin Take 1 tablet on Friday/Friday/Friday 250 mg PO 3XW 28 days 12 tabs 6RF K21.9 - Gastro-esophageal reflux disease without esophagitis dextromethorphan-guaifenesin 30-600 mg (Mucinex DM) 1 tab PO Q12H 14 days 28 tabs 4RF Coding Level of Care Code Est Pt Level 4 (92645) Diagnoses Tracheobronchitis J40 Tracheal stenosis J39.8 Tracheostomy dependent Z93.0 Moderate persistent asthma without complication J45.40 Asthma complication type: uncomplicated Asthma persistence: persistent Asthma severity: moderate Time Spent (min) 17
== END 2023-05-09 15:17 | disposition home or self-care (01) ==
PROVIDERS: PCP Family Medicine; Visit Provider Hospitalist
DX: J40 Bronchitis, not specified as acute or chronic (principal); J39.8 Other specified diseases of upper respiratory tract; Z93.0 Tracheostomy status; J45.40 Moderate persistent asthma, uncomplicated
CPT/HCPCS: 99214

== ENCOUNTER → 2023-05-09 14:43 | Outpatient (BNVA) | payer MEDICAID, SELFPAY | PROVIDERS: PCP Family Medicine; Visit Provider Hospitalist | DX: J45.40 Moderate persistent asthma, uncomplicated (principal); J39.8 Other specified diseases of upper respiratory tract; Z79.899 Other long term (current) drug therapy; Z93.0 Tracheostomy status | CPT/HCPCS: 99212 ==

== ENCOUNTER 2024-02-12 13:29 | Outpatient (AMB) | payer MEDICAID, SELFPAY ==
[2024-02-12 14:07] VITALS: BP 118/68; PULSE 73
--- NOTE | 2024-02-12 14:07 | MHC.OFFVIS ---
Vital Signs 02/12/24 14:07 Height 5 ft 4 in BMI Reason not done Patient refused/unable BP 118/68 Blood Pressure Location Lt brachial Position Sitting Pulse 73 Intake Visit Reasons: 1 yr f/up Intake Note: 1 year follow-up with ekg feeling good [employer]ision Structural [employer]itter Required: Yes Precision Structural Metal Fitter [place] [facility] [place]urnist: Nocturnist Present Accompanied by: METER TESTER PRIMARY Allergies haloperidol [Haldol] Allergy (Severe, Verified 05/09/23 14:55) rash Penicillins Allergy (Severe, Verified 05/09/23 14:55) HIVES Sulfa (Sulfonamide Antibiotics) Allergy (Severe, Verified 05/09/23 14:55) Rash sulfamethoxazole [From BACTRIM] Allergy (Mild, Verified 05/09/23 14:55) ITCHING/HIVES trimethoprim [From BACTRIM] Allergy (Mild, Verified 05/09/23 14:55) ITCHING/HIVES From HALDOL Allergy (Mild, Uncoded 05/09/23 14:55) RASH Medication List - Last Reconciled 02/12/24 by Delio Miles MD albuterol sulfate 2.5 mg (3 mL) inhalation Q4H PRN 30 days albuterol sulfate 90 mcg/actuation 2 inhalations inhalation Q6H PRN 30 days aspirin 81 mg PO BEDTIME azithromycin 250 mg PO 3XW 28 days budesonide 0.5 mg (2 mL) inhalation BID 30 days budesonide-formoterol 160-4.5 mcg/actuation (Symbicort) 2 puffs PO BID bupropion HCl 100 mg PO BID bupropion HCl XL 300 mg PO QAM cholecalciferol (vitamin D3) 50 mcg PO DAILY dextromethorphan-guaifenesin 30-600 mg (Mucinex DM) 1 tab PO Q12H 14 days dulaglutide (Trulicity) 1.5 mg subcut QWEEK dupilumab (Dupixent) Loading dose: 600mg SC x 1,then, 300mg SC every 2 weeks 12 months ezetimibe 10 mg PO BEDTIME 90 days fenofibrate 54 mg PO DAILY furosemide 40 mg PO QAM guaifenesin 200 mg (10 mL) PO Q6H PRN 14 days inhalational spacing device (Aerochamber MV spacer) As directed insulin glargine U-300 conc (Toujeo Max U-300 SoloStar) 70 units (0.2333 mL) subcut DAILY insulin lispro (Humalog KwikPen (U-100) Insulin) 15 units breakfast and lunch, 25 units with dinner and 5 units with snack subcut 4 times a day; isosorbide mononitrate ER 30 mg PO DAILY levothyroxine 150 mcg PO DAILY lisinopril 5 mg PO QAM loratadine 10 mg PO DAILY lorazepam 1 mg PO QID metformin 500 mg PO BID metoprolol tartrate 25 mg PO BID montelukast 10 mg PO BEDTIME nebulizers As directed omega-3 fatty acids (Fish Oil Concentrate) 1,000 mg PO BID oxcarbazepine mg PO pen needle, diabetic (Pentips) 1 ea miscellaneous five times a day; risperidone 3 mg PO BEDTIME roflumilast (Daliresp) 250 mcg PO DAILY 30 days rosuvastatin 40 mg PO BEDTIME sertraline 200 mg PO QAM sodium chloride 3% 4 mL inhalation BID 30 days HPI Comments Details: Tenisha comes for follow-up in the wheelchair, accompanied by his METER TESTER PRIMARY who is her [id number]. Unfortunately she lost her for whom she is still grieving. She has not had any hospitalization related to heart failure. Denies any anginal symptoms. Takes all her medications. Denies any worsening orthopnea, PND, leg edema. No weight gain. No chest pain. No recent blood work. 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 Urinary incontinence Surgical History Hx of CABG Hx of section Hx of tracheostomy Family History Father Diabetes CVD (cardiovascular disease) Mother Diabetes Hypertension Schizophrenia Social History Household Members: Spouse Alcohol intake: never Patient Tobacco Use Status: Never used Tobacco Review of Systems Const Denies chills, Denies fatigue, Denies fever(s), Denies frequent falls, Denies weakness, Denies weight gain and Denies weight loss ENT Denies dizziness Card Denies chest pain, Denies leg edema, Denies lightheadedness, Denies palpitations, Denies dyspnea, Denies dyspnea on exertion, Denies orthopnea and Denies other (loss of consciousness) Resp Denies cough, Denies dyspnea and Denies dyspnea on exertion GI Denies hematochezia and Denies change in stool character Musc Denies abnormal gait, Denies muscle weakness, Denies numbness, Denies radiating pain into limb and Denies tingling Neuro Denies abnormal gait, Denies dizziness, Denies frequent falls, Denies numbness, Denies tingling and Denies weakness Endo Denies fatigue and Denies palpitations Physical Exam Vital Signs: Last Vital Signs Pulse 73 02/12/24 14:07 BP 118/68 02/12/24 14:07 Const General: cooperative, comfortable, no acute distress, alert, awake and poor hygiene Nutritional Appearance: obese morbidly obese Orientation/consciousness: patient oriented x3 Limitations: wheelchair Neck Neck: Yes trachea midline, Yes supple, Yes tracheostomy present and Yes other (Difficult to evaluate JVD) Resp Effort & Inspection: normal respiratory effort Auscultation: wheezes expiratory wheezes and throughout and diminished lung sounds Cardio Rate: regular rate Rhythm: regular rhythm and abnormal rhythm Heart sounds: S1 normal heart sound present and S2 normal heart sound present Skin General skin exam: no rashes or lesions noted Neuro General: patient oriented x3 and no focal motor deficits Extrem General: Yes no clubbing, cyanosis or edema Office Procedures EKG Details: EKG shows normal sinus rhythm with anterior Q-waves with T-wave inversion high lateral leads [id number], Complete Assessment & Plan Assessment & Plan (1) CHF (congestive heart failure): Code(s): I50.9 - Heart failure, unspecified Category: Medical Plan: Prior history of congestive heart failure preserved ejection fraction although EKG shows anterior Q-waves. Will follow with echocardiogram near future. Clinically appears to be euvolemic and well compensated. Continue current diuretic dose. Management of CHF was discussed. Daily weight monitoring avoidance of salt loading was discussed. Continue lisinopril as well as metoprolol for neurohormonal modulation. Continue management of her underlying respiratory situation. She has pretty limited exercise capacity. Will continue to follow goals and including avoidance of hospitalization and improving symptoms. (2) CAD (coronary artery disease): Code(s): I25.10 - Atherosclerotic heart disease of [place] coronary artery without angina pectoris Category: Medical Plan: CAD with remote coronary artery bypass grafting. Currently having no symptoms of angina. Continue aspirin therapy. Continue dual antianginal therapy with isosorbide as well as metoprolol. Continue high-intensity statin therapy along with ezetimibe. Target goal LDL less than 60 mg/dL has had no blood work in near past. Advised to follow-up blood work including basic metabolic profile, lipid panel, CBC. Continue aggressive management diabetes. Will follow up in the clinic in 1 year's time, sooner p.r.n.. Thank you for allowing to partake in her care Orders: Orders Complete Blood Count no Diff 02/12/24 I50.9 - Heart failure, unspecified Lipid Panel 02/12/24 I25.10 - Atherosclerotic heart disease of [place] coronary artery without angina pectoris CA echo transthoracic complete 02/12/24 I50.9 - Heart failure, unspecified Basic Metabolic Panel 02/12/24 I50.9 - Heart failure, unspecified TSH reflex Free T4 02/12/24 I25.10 - Atherosclerotic heart disease of [place] coronary artery without angina pectoris Coding Level of Care Code Est Pt Level 4 (08783) Diagnoses CHF (congestive heart failure) I50.9 CAD (coronary artery disease) I25.10 CPT Codes EKG - CPT: 10184-Ecsxapadiaeupqvic, Complete ([id number])
== END 2024-02-12 15:02 | disposition home or self-care (01) ==
PROVIDERS: PCP Family Medicine; Referring Provider Family Medicine; Visit Provider Internal Medicine Cardiovascular Disease
DX: I50.9 Heart failure, unspecified (principal); I25.10 Atherosclerotic heart disease of native coronary artery without angina pectoris
CPT/HCPCS: 93010; 99214

== ENCOUNTER → 2024-02-12 13:29 | Outpatient (BNVA) | payer MEDICAID, SELFPAY | PROVIDERS: PCP Family Medicine; Visit Provider Internal Medicine Cardiovascular Disease | DX: I11.0 Hypertensive heart disease with heart failure (principal); I50.30 Unspecified diastolic (congestive) heart failure; I25.10 Atherosclerotic heart disease of native coronary artery without angina pectoris; Z95.1 Presence of aortocoronary bypass graft | CPT/HCPCS: 93005; 99212 ==

== ENCOUNTER 2024-03-16 13:38 | Outpatient (AMB) | payer MEDICAID, SELFPAY ==
[2024-03-16 13:50] VITALS: PULSE 81; O2SAT 98; BMI 39.5
--- NOTE | 2024-03-16 13:50 | MHC.OFFVIS ---
Vital Signs 03/16/24 13:50 Height 5 ft 4 in Weight 230 lb BMI 39.5 Pulse 81 Pulse Source Pulse Oximeter Pulse Oximetry (%) 98 Oxygen Delivery Method Room Air Intake Visit Reasons: Resp Failure Follow Up Varnisher Required: No Allergies haloperidol [Haldol] Allergy (Severe, Verified 03/16/24 13:51) rash Penicillins Allergy (Severe, Verified 03/16/24 13:51) HIVES Sulfa (Sulfonamide Antibiotics) Allergy (Severe, Verified 03/16/24 13:51) Rash sulfamethoxazole [From BACTRIM] Allergy (Mild, Verified 03/16/24 13:51) ITCHING/HIVES trimethoprim [From BACTRIM] Allergy (Mild, Verified 03/16/24 13:51) ITCHING/HIVES From HALDOL Allergy (Mild, Uncoded 03/16/24 13:51) RASH HPI Comments Details: The patient is a 64-year-old woman with a known history of tracheal stenosis status post tracheostomy. She has had multiple issues with her tracheostomy due to tracheomalacia and also significant tracheitis. She has been culture positive for Staph aureus. She has responded well to doxycycline in the past. In her room lately she has been having more respiratory issues and difficulty breathing with her tracheostomy. She was supposed to get a tracheostomy change today a [facility] but it was canceled. The patient is nonverbal due to her tracheostoma. Her [employer] feels like she needs to have bronchoscopy because of her secretions. will plan for her to come in next week for tracheostomy change and a chest x-ray. 10/21/2022 the patient is here for a pulmonary follow-up visit. She is having hard time with her new tracheostomy. She went from an 8 Portex DIC to a Shiley 8 mm outer diameter. Now she has a hard time when she is eating and also she has a hard time speaking likely because the outer diameter is significantly larger. She also has increased cough with mucus production making hard for her to breathe. Seems like the patient benefits from my smaller outer diameter in view of her major complaints. She also has likely a recurrent tracheitis that she seems to continue to develop. We did have a Shiley 7.5 mm which I switched her to with the hope that she could breathe better a rounded and still have enough of an airway to be able to suction and cough her secretions. I am hopeful that this is a better size for her. In the meantime I will send a prednisone antibiotics to the pharmacy to treat her tracheitis. She needs to continue to use her trach collar mask for her secretions and avoiding drying of her airways. She also continues use her nebulizer for her significant bronchospasms in asthma symptoms. 12/23/2022 the patient is here for pulmonary follow-up visit. She still struggling with her breathing. She continues to have significant chest tightness and cough. It also makes it hard because she has the tracheostomy that makes it even harder to cough. She also has some degree of tracheobronchomalacia from her chronic airway disease. She has required prednisone multiple times already this year because of the chest tightness and wheezing. We did test her allergies during the last few visits. The patient did have allergies to multiple environmental factors. This also includes mold. Her IgE levels have been significantly elevated between 500-800 in addition to that her eosinophils are elevated. Based on her ongoing prednisone need and her significant asthma and respiratory symptoms I do believe that she will be a good candidate for biologic therapy. The patient has a hard time with prednisone specially because she has diabetes has been on insulin. Therefore will go ahead and start her on Dupixent as a good option to minimize her flare ups. The patient has a tracheostomy. She is providing trach care. She is going to go tomorrow to change it at [facility]. 05/09/2023 the patient is here for a pulmonary follow-up visit. She is getting her tracheostomy changed at [facility]. She has not been getting any inner cannulas to replace her current once. I will request applies from her [employer]. She continues to have a cough. Also some chest tightness. Although she did start her biologic therapy and already her asthma seems to be better controlled. I am hopeful that the patient does not need as much prednisone. She is having increase chest congestion with more secretions from her tracheostomy. Will go ahead and place her on azithromycin to see if we can improve her secretions. 03/16/2024 the patient is here for a pulmonary follow-up visit. The patient is grieving the loss of her . She is very sad. She has lost weight. From a trach standpoint the patient is doing okay. She does have her tracheostomy changed at [facility]. She does have a 7.5 inner cannula tracheostomy in place with good effect. She does change her inner cannula regularly she did get a new suction machine. She is able to cough up his own secretions which is reassuring. She is able to speak by obstructing the tracheostomy although is difficult for her tolerate a Passy Dilip valve due to her tracheal stenosis. From a respiratory status the patient does have asthma. She stopped the Dupixent because of conjunctivitis. She has been on the azithromycin 3 times a week. She had an EKG a few weeks ago was okay per report. Therefore she continue with the azithromycin 3 times a week for her chronic bronchitis and she will continue with respiratory medications. If her asthma gets worse we can consider other biologic regimens. 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 Urinary incontinence Surgical History Hx of CABG Hx of section Hx of tracheostomy Family History Father Diabetes CVD (cardiovascular disease) Mother Diabetes Hypertension Schizophrenia Social History Household Members: Spouse Alcohol intake: never Patient Tobacco Use Status: Never used Tobacco Review of Systems Const Denies night sweats and Reports weight loss ENT Denies neck pain Card Denies chest pain and Reports dyspnea on exertion Resp Denies change in phlegm color, Reports chest congestion, Reports cough, Denies hemoptysis and Reports dyspnea on exertion GI Denies abdominal pain Musc Denies no additional complaints and Denies neck pain Neuro Denies Neuro-related abnormal movements Psych Reports as per HPI Dick/Lymph Denies easy bleeding and Denies lymphadenopathy Physical Exam Vital Signs: Last Vital Signs Pulse 81 03/16/24 13:50 Pulse Ox 98 03/16/24 13:50 Oxygen Delivery Method Room Air 03/16/24 13:50 BMI result Body Mass Index 39.5 Const General: alert HEENT General nose exam: Abnormal external nose present and Nasal discharge present Eyes Pupils: Equal, round and reactive pupils present Neck Neck: Yes normal visual inspection, Yes full ROM, Yes no lymphadenopathy and Yes tracheostomy present (#8 DIC uncuffed) Chest Chest palpation & inspection: normal inspection of the chest Resp Auscultation: no wheezes and diminished lung sounds Cardio Rate: regular rate Rhythm: regular rhythm Heart sounds: S1 normal heart sound present and S2 normal heart sound present GI Palpation (GI): Soft to palpation and nontender Auscultation: normal bowel sounds General: Yes no CVA tenderness Back/Spine/Pelvis Back: no CVA tenderness Skin General skin exam: rashes and/or lesions noted Neuro Cranial nerves: Yes Equal, round and reactive pupils present Assessment & Plan Assessment & Plan (1) Tracheobronchitis: Code(s): J40 - Bronchitis, not specified as acute or chronic Category: Medical (2) Tracheal stenosis: Comment: chronic Code(s): J39.8 - Other specified diseases of upper respiratory tract Category: Medical (3) Tracheostomy dependent: Comment: s/p tracheostomy change today during the visit. No complications noted Code(s): Z93.0 - Tracheostomy status Category: Medical (4) Asthma: Code(s): J45.909 - Unspecified asthma, uncomplicated Category: Medical Qualifiers: Asthma complication type: uncomplicated Asthma persistence: persistent Asthma severity: moderate Qualified Code(s): J45.40 - Moderate persistent asthma, uncomplicated Plan Continue CPT with nebulized therapy twice a day cont Symbicort with spacer via trach continue albuterol hypertonic saline tracheostomy care: [employer] 7.5mm continue Azithromycin MWF EKG done 3-4 weeks stopped Dupixent due conjuctivitis Allergy medicine: Ashley Follow-up in 3-4 months Coding Level of Care Code Est Pt Level 4 (89690) Complex EM visit Add On G2211 Diagnoses Tracheobronchitis J40 Tracheal stenosis J39.8 Tracheostomy dependent Z93.0 Moderate persistent asthma without complication J45.40 Asthma complication type: uncomplicated Asthma persistence: persistent Asthma severity: moderate Time Spent (min) 16
== END 2024-03-16 14:16 | disposition home or self-care (01) ==
PROVIDERS: PCP Family Medicine; Visit Provider Hospitalist
DX: J40 Bronchitis, not specified as acute or chronic (principal); J39.8 Other specified diseases of upper respiratory tract; Z93.0 Tracheostomy status; J45.40 Moderate persistent asthma, uncomplicated
CPT/HCPCS: 99214

== ENCOUNTER → 2024-03-16 13:38 | Outpatient (BNVA) | payer MEDICAID, SELFPAY | PROVIDERS: PCP Family Medicine; Visit Provider Hospitalist | DX: J40 Bronchitis, not specified as acute or chronic (principal); J45.40 Moderate persistent asthma, uncomplicated; J39.8 Other specified diseases of upper respiratory tract; Z93.0 Tracheostomy status | CPT/HCPCS: 99212 ==

== ENCOUNTER 2024-08-24 13:58 | Outpatient (AMB) | payer MEDICAID, SELFPAY ==
--- NOTE | 2024-08-24 14:05 | A.OFFVIS_ITS ---
Vital Signs 08/24/24 14:06 Height 5 ft 4 in BMI Reason not done Patient refused/unable BP 124/78 Blood Pressure Location Lt brachial Position Sitting Pulse 80 Pulse Source Pulse Oximeter Pulse Oximetry (%) 100 Oxygen Delivery Method Room Air Intake Visit Reasons: resp failure Allergies haloperidol [Haldol] Allergy (Severe, Verified 08/24/24 14:09) rash Penicillins Allergy (Severe, Verified 08/24/24 14:09) HIVES Sulfa (Sulfonamide Antibiotics) Allergy (Severe, Verified 08/24/24 14:09) Rash sulfamethoxazole [From BACTRIM] Allergy (Mild, Verified 08/24/24 14:09) ITCHING/HIVES trimethoprim [From BACTRIM] Allergy (Mild, Verified 08/24/24 14:09) ITCHING/HIVES From HALDOL Allergy (Mild, Uncoded 08/24/24 14:09) RASH HPI Comments Details: The patient is a 64-year-old woman with a known history of tracheal stenosis status post tracheostomy. She has had multiple issues with her tracheostomy due to tracheomalacia and also significant tracheitis. She has been culture positive for Staph aureus. She has responded well to doxycycline in the past. In her room lately she has been having more respiratory issues and difficulty breathing with her tracheostomy. She was supposed to get a tracheostomy change today a [facility] but it was canceled. The patient is nonverbal due to her tracheostoma. Her [employer] M[employer] GATHERER feels like she needs to have bronchoscopy because of her secretions. will plan for her to come in next week for tracheostomy change and a chest x-ray. 10/21/2022 the patient is here for a pulmonary follow-up visit. She is having hard time with her new tracheostomy. She went from an 8 Portex DIC to a Shiley 8 mm outer diameter. Now she has a hard time when she is eating and also she has a hard time speaking likely because the outer diameter is significantly larger. She also has increased cough with mucus production making hard for her to breathe. Seems like the patient benefits from my smaller outer diameter in view of her major complaints. She also has likely a recurrent tracheitis that she seems to continue to develop. We did have a Shiley 7.5 mm which I switched her to with the hope that she could breathe better a rounded and still have enough of an airway to be able to suction and cough her secretions. I am hopeful that this is a better size for her. In the meantime I will send a prednisone antibiotics to the pharmacy to treat her tracheitis. She needs to continue to use her trach collar mask for her secretions and avoiding drying of her airways. She also continues use her nebulizer for her significant bronchospasms in asthma symptoms. 12/23/2022 the patient is here for pulmonary follow-up visit. She still struggling with her breathing. She continues to have significant chest tightness and cough. It also makes it hard because she has the tracheostomy that makes it even harder to cough. She also has some degree of tracheobronchomalacia from her chronic airway disease. She has required prednis one multiple times already this year because of the chest tightness and wheezing. We did test her allergies during the last few visits. The patient did have allergies to multiple environmental factors. This also includes mold. Her IgE levels have been significantly elevated between 500-800 in addition to that her eosinophils are elevated. Based on her ongoing prednisone need and her significant asthma and respiratory symptoms I do believe that she will be a good candidate for biologic therapy. The patient has a hard time with prednisone specially because she has diabetes has been on insulin. Therefore will go ahead and start her on Dupixent as a good option to minimize her flare ups. The patient has a tracheostomy. She is providing trach care. She is going to go tomorrow to change it at [facility]. 05/09/2023 the patient is here for a pulmonary follow-up visit. She is getting her tracheostomy changed at [facility]. She has not been getting any inner cannulas to replace her current once. I will request applies from her [employer] company. She continues to have a cough. Also some chest tightness. Although she did start her biologic therapy and already her asthma seems to be better controlled. I am hopeful that the patient does not need as much prednisone. She is having increase chest congestion with more secretions from her tracheostomy. Will go ahead and place her on azithromycin to see if we can improve her secretions. 03/16/2024 the patient is here for a pulmonary follow-up visit. The patient is grieving the loss of her . She is very sad. She has lost weight. From a trach standpoint the patient is doing okay. She does have her tracheostomy changed at [facility]. She does have a 7.5 inner cannula tracheostomy in place with good effect. She does change her inner cannula regularly she did get a new suction machine. She is able to cough up his own secretions which is reassuring. She is able to speak by obstructing the tracheostomy although is difficult for her tolerate a Passy Dilip valve due to her tracheal stenosis. From a respiratory status the patient does have asthma. She stopped the Dupixent because of conjunctivitis. She has been on the azithromycin 3 times a week. She had an EKG a few weeks ago was okay per report. Therefore she continue with the azithromycin 3 times a week for her chronic bronchitis and she will continue with respiratory medications. If her asthma gets worse we can consider other biologic regimens. 08/24/2024 the patient is here for a pulmonary follow-up visit. Overall she is doing well. She is getting her trach changes at [facility] without any complications. She does complaint of some pleuritic discomfort primarily in the right upper quadrant when she takes a deep breath in. Seems to be more related to the GI tract. She has not moved her bowels in a couple days therefore she could have some degree of constipation affecting her lung expansion. Her lungs sound clear. The patient has been on the azithromycin 3 times a week that is been helping her with her secretions. In addition to that she continues use respiratory medications with good effect. She is not getting frequent suctioning. Otherwise she is doing okay. She will follow-up in 4 months. If she has any issues she can always come in for chest x-ray she still continues to have the right upper quadrant pleuritic discomfort. [facility] Medical History (Updated 08/24/24 @ 14:28 by Lauro Renteria MD) Pleuritic chest pain Tracheobronchitis Tracheostomy dependent Ischemic cardiomyopathy Fibroid uterus CHF (congestive heart failure) Urinary incontinence Asthma Anxiety Dysphagia Tracheal stenosis Chronic kidney disease, stage 3 Essential hypertension Hypothyroidism Type 2 diabetes mellitus with chronic kidney disease CAD (coronary artery disease) Dyslipidemia Surgical History Hx of section Hx of tracheostomy Hx of CABG Family History Father Diabetes CVD (cardiovascular disease) Mother Diabetes Hypertension Schizophrenia Social History Household Members: Spouse Alcohol intake: never Patient Tobacco Use Status: Never used Tobacco Review of Systems Const Denies night sweats and Reports weight loss ENT Denies neck pain Card Denies chest pain and Reports dyspnea on exertion Resp Denies change in phlegm color, Denies chest congestion, Reports cough, Denies hemoptysis and Reports dyspnea on exertion GI Reports abdominal pain Musc Denies no additional complaints and Denies neck pain Neuro Denies Neuro-related abnormal movements Psych Reports as per HPI Dick/Lymph Denies easy bleeding and Denies lymphadenopathy Physical Exam Vital Signs: Last Vital Signs Pulse 80 08/24/24 14:06 BP 124/78 08/24/24 14:06 Pulse Ox 100 08/24/24 14:06 Oxygen Delivery Method Room Air 08/24/24 14:06 Const General: alert HEENT General nose exam: Abnormal external nose present and Nasal discharge present Eyes Pupils: Equal, round and reactive pupils present Neck Neck: Yes normal visual inspection, Yes full ROM, Yes no lymphadenopathy and Yes tracheostomy present (#8 DIC uncuffed) Chest Chest palpation & inspection: normal inspection of the chest Resp Auscultation: no wheezes and diminished lung sounds Cardio Rate: regular rate Rhythm: regular rhythm Heart sounds: S1 normal heart sound present and S2 normal heart sound present GI Palpation (GI): Soft to palpation and nontender Auscultation: normal bowel sounds General: Yes no CVA tenderness Back/Spine/Pelvis Back: no CVA tenderness Skin General skin exam: rashes and/or lesions noted Neuro Cranial nerves: Yes Equal, round and reactive pupils present Assessment & Plan Assessment & Plan (1) Pleuritic chest pain: Code(s): R07.81 - Pleurodynia Category: Medical (2) Tracheobronchitis: Code(s): J40 - Bronchitis, not specified as acute or chronic Category: Medical (3) Tracheal stenosis: Comment: chronic Code(s): J39.8 - Other specified diseases of upper respiratory tract Category: Medical (4) Tracheostomy dependent: Comment: s/p tracheostomy change today during the visit. No complications noted Code(s): Z93.0 - Tracheostomy status Category: Medical (5) Asthma: Code(s): J45.909 - Unspecified asthma, uncomplicated Category: Medical Qualifiers: Asthma severity: moderate Asthma persistence: persistent Asthma complication type: uncomplicated Qualified Code(s): J45.40 - Moderate persistent asthma, uncomplicated Plan Continue CPT with nebulized therapy twice a day cont Symbicort with spacer via trach continue albuterol hypertonic saline tracheostomy care: Medtronic 7.5mm continue Azithromycin MWF stopped Dupixent due conjuctivitis Allergy medicine: Claritin and Singulair CXR Follow-up in 3-4 months Orders: Orders XR chest 2V Today R07.81 - Pleurodynia Coding Level of Care Code Est Pt Level 4 (39310) Complex EM visit Add On G2211 Diagnoses Pleuritic chest pain R07.81 Tracheobronchitis J40 Tracheal stenosis J39.8 Tracheostomy dependent Z93.0 Moderate persistent asthma without complication J45.40 Asthma severity: moderate Asthma persistence: persistent Asthma complication type: uncomplicated Time Spent (min) 17
[2024-08-24 14:06] VITALS: BP 124/78; PULSE 80; O2SAT 100
== END 2024-08-24 14:32 | disposition home or self-care (01) ==
PROVIDERS: PCP Family Medicine; Visit Provider Hospitalist
DX: R07.81 Pleurodynia (principal); J40 Bronchitis, not specified as acute or chronic; J39.8 Other specified diseases of upper respiratory tract; Z93.0 Tracheostomy status; J45.40 Moderate persistent asthma, uncomplicated
CPT/HCPCS: 99214

== ENCOUNTER → 2024-08-24 13:58 | Outpatient (BNVA) | payer MEDICAID, SELFPAY | PROVIDERS: PCP Family Medicine; Visit Provider Hospitalist | DX: J45.40 Moderate persistent asthma, uncomplicated (principal); J40 Bronchitis, not specified as acute or chronic; J39.8 Other specified diseases of upper respiratory tract; R07.81 Pleurodynia; Z93.0 Tracheostomy status | CPT/HCPCS: 99212 ==

== ENCOUNTER → 2024-10-20 14:06 | Outpatient (REF) | payer MEDICAID, SELFPAY ==
--- NOTE | 2024-10-20 14:11 | CA_ITS ---
Transthoracic Echocardiogram Patient (Last, First, Middle): Tenisha Ingram D Gender: Female Date of : 1960 Age: 64 Procedure Date: 10/20/2024 Procedure Type: Transthoracic Echocardiogram Location: OP Height: 162.56 cm Weight: 99.34 kg BSA: 2.03 m2 Heart Rate: 72 bpm BP: 122 / 70 mmHg Civil Engineering Specialist: LEELA Referring MD: Delio Miles MD Symptoms: I50.9 - Heart failure, unspecified Study Quality: Fair ECG Rhythm: Sinus Conclusions: - 1. Mildly to moderately reduced LV ejection fraction 40-45% with impaired relaxation filling pattern 2. Cardiac valvular Dopplers within normal limits Findings Procedure Information Contrast agent, definity, is being given per protocol without apparent complications. The quality of the study was technically difficult. The study quality is limited by patients body habitus and lung artifact. Left Ventricle Normal left ventricular cavity size. There is normal left ventricular wall thickness. The left ventricular systolic function is mild to moderately decreased. The visually estimated ejection fraction is between 40-45%. Regional wall motion abnormalities can not be excluded due to suboptimal endocardial definition. Spectral Doppler is indicative of an impaired relaxation filling pattern. E/E prime ratio is between 8 and 15 consistent with indeterminate filling pressures. Right Ventricle The right ventricle was not well visualized. Atria The left atrium is normal in size. Interatrial shunt cannot be excluded. The right atrium was not well visualized. Aortic Valve The aortic valve was not well visualized. There is no aortic valve stenosis. There is no aortic valve regurgitation. Mitral Valve There is mild anterior and posterior mitral leaflet thickening. There is trace mitral valve regurgitation. There is no mitral valve stenosis. Pulmonic Valve The pulmonic valve was not well visualized. Tricuspid Valve The tricuspid valve was not well visualized. Tricuspid regurgitation envelope is inadequate for calculation of right ventricular systolic pressure. Normal right atrial pressure. Great Vessels The aorta was not well visualized. The pulmonary artery was not well visualized. Venous The inferior vena cava is normal in size and collapses greater than 50% with inspiration. Pericardium/Pleural The pericardium was not well visualized. Prior Study Comparison Changes noted compared to prior study dated: 01/06/2019. LV systolic function is marginally reduced Measurements 2D Linear Measurements IVSd: 1.06 0.6-0.9/0.6-1.0 cm LVIDd: 5.33 3.9-5.3/4.2-5.9 cm LVIDd Index: 2.63 2.4-3.2/2.2-3.1 cm/m2 LVIDs: 4.37 2.0-3.6 cm LVPWd: 0.71 0.7-1.1 cm LA Diam: 3.40 2.7-3.8/3.0-4.0 cm LAIDs Index: 1.67 1.5-2.3 cm/m2 LV Mass: 215.22 67-162/88-224 g LV Mass Index: 106.02 43-95/49-115 g/m2 LVOT Diam: 2.00 3.0+(-)1.3 cm 2D Systolic Function EF 4C: 38.80 >55% EF 2C: 47.00 >55% EF BiP: 40.90 >55% Mitral Valve MV Pk E: 0.94 MV PK A: 1.06 MV Decel Time: 181.00 E/A: 0.90 E'Lateral: 8.24 E'Medial: 4.47 E/E' Med: 21.00 E/E' Lat: 11.40 PHT: 53.00 MVA PHT: 4.15 Decel [place]: 5.17 Aortic Valve AoV Pk Rohan: 1.23 AoV Mn Rohan: 0.84 AoV VTI: 0.25 AoV Pk Grad: 6.00 Aov Mn Grad: 3.00 ARIANNA Cont.VTI: 2.14 AI Pk Rohan: 1.23 AI [place]: 19.19 LVOT LVOT Pk Rohan: 0.74 LVOT Mn Rohan: 0.55 LVOT VTI: 0.17 LVOT Pk Grad: 2.00 LVOT Mn Grad: 1.00 LVOT Diam: 2.00 LVOT Area: 3.14 Diastolic Function MV Pk E: 0.94 MV Pk A: 1.06 E/A: 0.90 E'Medial: 4.47 E/E' Med: 21.00 E' Laterial: 8.24 E/E' Lat: 11.40 Tricuspid Valve RA Press: 3.00 Great Vessels Aorta Ao Asc: 3.40 2.1-3.4 cm Pulmonary Valve PV Pk Rohan: 0.92 Peak PV Grad: 3.00 Updated in Other Vendor System with Status of Final Delio Miles MD electronically signed on 10/21/2024 12:17:06 PM with status of Final
--- OUTSIDE RECORDS SUMMARY | 2024-10-20 17:02 | XMS_ITS | Encounter Summary ---
Author Organization [employer] Address [address] [place] [address] Care Team Providers Care Freight Sales Broker Name Role Phone Nan Shaw DO Primary Care Provider [phone] Reason for Visit * Reason Onset Date Comments Med Refill telephone call 11/03/2022 Encounter Details Date Type Department Care Team (Late st Contact Info) Description 11/03/2022 Refill [facility] [address], [place] [phone] Nan Shaw DO [address], [place] [phone] Social History Tobacco Use Types Packs/Day Years Used Date Smoking Tobacco: Never Passive Smoke Exposure: Never Alcohol Use Standard Drinks/Week Comments Never 0 (1 standard drink = 0.6 oz pur e alcohol) Depression Answer Date Recorded Patient Health Questionnaire-9 Score 0 09/16/2022 Depression Answer Date Recorded Patient Health Questionnaire-2 Score 0 09/16/2022 Comments Unknown Sex and Gender Information Value Date Recorded Sex Assigned at Female 06/17/2022 10:19 AM EDT Legal Sex Female 10:19 AM EDT Gender Identity Female 06/17/2022 10:19 AM EDT Sexual Orientation Straight 06/17/2022 10 :19 AM EDT documented as of this encounter Miscellaneous Notes * Telephone Encounter - Liliane Ingram - 11/11/2022 3:33 PM EDT Scripts generated for providers signature * Telephone Encounter - Olga Hmamonds - 11/08/2022 12:06 PM EDT Pt walked in requesting for Dr. Shaw to send an order for a portable toilet and a hospital bed. Pt states she talked to the Dr about this in her last visit. documented in this encounter Plan of Treatment Upcoming Encounters Date Type Department Care Team (Late st Contact Info) Description 01/07/2025 2:00 PM EDT Office Visit [facility] [address] [place], [place] [phone] KeanuFlaquita amaro, OD [address] [place], [place] [phone] documented as of this encounter Visit Diagnoses Not on filedocumented in this encounter Additional Health Concerns Assessment Noted Time PHQ-9 Depression Total Score: 0 09/16/19 23 11:12 AM EST documented as of this encounter Care Teams Freight Sales Broker Relationship Specialty Start Date End Date Nan Shaw DO [address], [place] [phone] PCP - General Family Medicine 07/30/12 documented as of this encounter
--- OUTSIDE RECORDS SUMMARY | 2024-10-20 17:02 | XMS_ITS | Clinical Summary ---
Author Organization [facility] Address [address] [place] [address] [address] [place] [address] Care Team Providers Care Film Historian Name Role Phone Valeria Nan Primary Care Provider [phone] Allergies Active Allergy Reactions Criticality Noted Date Comments Haloperidol 10/11/2016 Laryngospasm Penicillins Swelling,Rash Low 04/03/2012 Tolerates cephalosporins (ceftriaxone, cefepime) Sulfamethoxazole-Trimet hoprim 10/11/2016 Medications * This document contains information received from the source organization and may not represent a complete record from that organization. albuterol (2.5 MG/3ML) 0.083% nebulizer solution INHALE 1 AMPULE USING A NEBULIZER EVERY 6 HOURS NEEDED FOR WHEEZING OR SHORTNESS OF BREATH 01/16/20 22 Active Ventolin HFA 108 (90 Base) MCG/ACT inhaler INHALE 2 PUFFS BY MOUTH EVERY 6 HOURS NEEDED SHORTNESS OF BREATH OR FOR WHEEZING 07/15/20 22 Active Aspirin Low Dose 81 MG EC tablet TAKE 1 TABLET BY MOUTH AT BEDTIME 08/15/20 22 Active budesonide (Pulmicort) 0.5 MG/2ML nebulizer solution INHALE 1 AMPULE USING A NEBULIZER TWICE DAILY 01/16/20 22 Active Symbicort 160-4.5 MCG/ACT inhaler INHALE 2 PUFFS TWICE DAILY RINSE MOUTH AFTER USING. 07/09/20 22 Active buPROPion XL (Wellbutrin XL) 300 MG 24 hr tablet TAKE 1 TABLET BY MOUTH EVERY MORNING 08/15/20 22 Active ezetimibe (Zetia) 10 MG tablet TAKE 1 TABLET BY MOUTH AT BEDTIME 08/15/20 22 Active furosemide (Lasix) 40 MG tablet TAKE 1 TABLET BY MOUTH EVERY MORNING (water pill) 08/15/20 22 Active isosorbide mononitrate ER (Imdur) 30 MG 24 hr tablet TAKE 1 TABLET BY MOUTH AT BEDTIME 08/15/20 22 Active lisinopril 5 MG tablet TAKE 1 TABLET BY MOUTH EVERY MORNING FOR BLOOD PRESSURE 08/15/20 Active loratadine (Claritin) 10 MG tablet TAKE 1 TABLET BY MOUTH ONCE DAILY FOR ALLERGIES 08/15/20 Active metoprolol tartrate (Lopressor) 25 MG tablet TAKE 1 TABLET BY MOUTH TWICE DAILY IN THE MORNING AND AT BEDTIME BLOOD PRESSURE 08/15/20 Active montelukast (Singulair) 10 MG tablet TAKE 1 TABLET BY MOUTH AT BEDTIME 08/15/20 22 Active nitroglycerin (Nitrostat) 0.4 MG SL tablet DISSOLVE 1 TABLET UNDER THE TONGUE EVERY 5 MINUTES NEEDED FOR CHEST PAIN. CALL 911 IF NO RELIEF 12/28/19 Active OXcarbazepine (Trileptal) 300 MG tablet TAKE 1 TABLET BY MOUTH EVERY MORNING and TAKE 2 TABLETS BY MOUTH EVERY DAY AT BEDTIME 08/15/20 22 Active risperiDONE (RisperDAL) 3 MG tablet TAKE 1 TABLET BY MOUTH AT BEDTIME 08/15/20 22 Active rosuvastatin (Crestor) 40 MG tablet TAKE 1 TABLET BY MOUTH AT BEDTIME 08/15/20 22 Active sertraline (Zoloft) 100 MG tablet TAKE 2 TABLETS BY MOUTH ONCE DAILY IN THE MORNING 08/15/20 22 Active zolpidem (Ambien) 10 MG tablet TAKE 1 TABLET BY MOUTH AT BEDTIME 08/15/20 22 Active LORazepam (Ativan) 1 MG tablet Take 1 mg by mouth 4 times daily. 01/23/20 23 Active docusate sodium (Colace) 100 MG capsuleIndications: Chronic constipation TAKE 1 CAPSULE BY MOUTH TWICE DAILY 180 capsule 3 11/17/19 24 Active levothyroxine (Synthroid, Levoxyl) 137 MCG tabletIndications:H ypothyroidism (acquired) TAKE 1 TABLET BY MOUTH EVERY MORNING 90 tablet 3 11/17/19 24 Active omeprazole (PriLOSEC) [address] capsuleIndications: Chronic gastroesophageal reflux disease TAKE 1 CAPSULE BY MOUTH EVERY MORNING BEFORE A MEAL 90 capsule 3 11/17/19 24 Active senna (Senokot) 8.6 MG tabletIndications:C hronic constipation TAKE 2 TABLETS BY MOUTH EVERY DAY AT BEDTIME NEEDED FOR CONSTIPATION 180 tablet 3 11/17/19 24 Active omega-3 acid ethyl esters (Lovaza) 1 g capsule TAKE 1 CAPSULE BY MOUTH TWICE DAILY IN THE MORNING AND AT BEDTIME 180 capsule 3 12/17/19 24 Active TRUEplus Lancets 33G miscIndications:Typ e 2 diabetes mellitus with chronic kidney disease, with long-term current use of insulin, unspecified CKD stage ([facility]) Apply 1 each topically 6 (six) times a day. 200 each 01/05/20 24 Active Pentips 32G X 4 MM misc USE FIVE TIMES DAILY 100 each 01/07/20 24 Active Multiple Vitamin (Multivitamin) tablet TAKE 1 TABLET BY MOUTH EVERY MORNING 90 tablet 3 02/16/20 24 Active cholecalciferol VITAMIN D (Vitamin D-3) 50 MCG (1999) tabletIndications:V itamin D deficiency TAKE 1 TABLET BY MOUTH EVERY MORNING ( VITAMIN) 90 tablet 3 02/16/20 24 Active fenofibrate (Tricor) 54 MG tabletIndications:O ther hyperlipidemia TAKE 1 TABLET BY MOUTH EVERY MORNING 90 tablet 3 02/16/20 24 Active FREESTYLE LITE test stripIndications:Ty pe 2 diabetes mellitus without complication, with long-term current use of insulin ([facility]) USE TO TEST BLOOD SUGAR 4 TO 6 TIMES A DAY 100 each 02/24/20 24 Active metFORMIN (Glucophage) 500 MG tabletIndications:T ype 2 diabetes mellitus with other specified complication, with long-term current use of insulin ([facility]) TAKE 1 TABLET BY MOUTH TWICE DAILY IN THE MORNING AND IN THE EVENING 180 tablet 2 03/23/20 24 Active Alcohol Swabs (Alcohol Prep) 70 % pads USE THREE TIMES DAILY AND NEEDED 100 each 06/16/20 24 Active insulin glargine (Toujeo Max SoloStar) 300 UNIT/ML injectionIndication s:Type 2 diabetes mellitus with other specified complication, with long-term current use of insulin ([facility]) INJECT 60 UNITS SUBCUTANEOUSLY ONCE DAILY 12 mL 2 06/25/20 24 Active Blood Glucose Monitoring Suppl (FreeStyle Preston Lite) w/Device kit Use to test blood sugar 3 times daily 1 kit 06/25/20 24 Active Continuous Glucose (FreeStyle Mey 2 Oakley) device Scan sensor every 8 hours 1 each 06/25/20 24 Active Continuous Glucose Sensor (FreeStyle Mey 2 Sensor) mis Apply 1 sensor every 14 days 2 each 06/25/20 24 Active glucose blood (FreeStyle Precision Jalil Test) test strip Use to test blood sugar 3 times daily 100 each 06/25/20 24 2024 Active Dulaglutide 1.5 MG/0.5ML solution auto-injector Inject 0.5 mL (1.5 mg) under the skin 1 (one) time per week. 2 mL 06/25/20 Active insulin lispro (HumaLOG) 100 UNIT/ML injectionIndication s:Diabetes 1.5, managed as type 2 ([facility]) INJECT 15 TO 25 UNITS SUBCUTANEOUSLY THREE TIMES DAILY WITH MEALS DIRECTED 15 mL 3 07/12/20 Active Active Problems Problem Noted Date Diagnosed Date Bereavement 01/29/2024 Assessment & Plan (03/08/2024 9:18 AM EDT): During IBH Consult Tenisha presenting with depressed mood, loss of interests/pleasure , changes in sleep difficulty falling asleep, change in appetite or weight reduce appetite, trouble concentrating, fatigue/loss of energy, inappropriate guilt , hopelessness, worthlessness , difficulty concentrating, anger and disbelief about the passing of her ; for a period of 6-12 mo, for all symptoms in the context of and financial concern. Tenisha endorsed severe sadness as a response of her 's . They were for 43 years. Her was Tenisha's TITLE SEARCHER and who provided financial support to their home. Tenisha finds it difficult to keep a routine and worries about the upcoming payments of her apartment. Currently engaged in MH services with [facility] / [facility]. Tenisha was engaged with open-ended questions, reflective listening and was provided a safe space to share emotions and talk about her . clinician reviewed and assessed for risk, current stressors, triggers and protective factors. Tenisha was recommended to continue with current services provided by [facility] at [facility]. clinician will be available if needed/requested during her next medical appointment. PLAN: (check all that apply) Continue with current services (defined as services in the past 12 months) . Pt is currently engaged with OP and psychiatry services at [facility] / [facility]. clinician will be available if requested next time during patient's medical appointment. Assessment & Plan (02/05/2024 10:40 AM EDT): During IBH Consult Tenisha presenting with depressed mood, loss of interests/pleasure , changes in sleep difficulty staying asleep , change in appetite or weight reduce appetite, trouble concentrating, thoughts of worthlessness or guilt, fatigue/loss of energy, inappropriate guilt , hopelessness, worthlessness , difficulty concentrating, anger and disbelief about the passing of her , for a period of 0-6 months for some symptoms; in the context of and financial concern. Tenisha endorsed severe sadness as a response of her 's . They were for 43 years. His was his TITLE SEARCHER and who provided financial support to their home. Tenisha finds it difficult to keep a routine and worries about the upcoming payments of her apartment. Currently engaged in MH services with [facility] / [facility]. Tenisha was engaged with open-ended questions, reflective listening and was provided a safe space to share emotions and talk about her , Lauro. PLAN: (check all that apply) Continue with current services (defined as services in the past 12 months) Behavioral Health Integration Plan Internal Follow up with [facility] Patient Self Plan Patient to utilize skills provided in intervention , Patient to reach out to [facility] team as needed, Comply with medication , and Patient to engage in OP therapy . Pt is currently engaged in MH services with [facility] at [facility] for OP individual therapy and psychiatry. Pt would like to follow-up with [facility] clinician as needed. Chronic gastroesophageal reflux disease 01/20/20 24 BMI 40.0-44.9, adult 02/12/2023 Healthcare maintenance 09/16/2022 Stage 3 chronic kidney disease 09/16/2022 Chronic constipation 09/16/2022 Anxiety 06/13/2015 Coronary artery disease 06/13/2015 Congestive heart failure 06/13/2015 Type 2 diabetes mellitus 06/13/2015 Hyperlipidemia 06/13/2015 Essential hypertension 06/13/2015 Hypothyroidism 06/13/2015 Moderate persistent asthma 06/13/2015 Posttraumatic stress disorder 06/13/2015 Major depression, recurrent, chronic 06/13/2015 Assessment & Plan (03/08/2024 9:18 AM EDT): During IBH Consult Tenisha presenting with depressed mood, loss of interests/pleasure , changes in sleep difficulty falling asleep, change in appetite or weight reduce appetite, trouble concentrating, fatigue/loss of energy, inappropriate guilt , hopelessness, worthlessness , difficulty concentrating, anger and disbelief about the passing of her ; for a period of 6-12 mo, for all symptoms in the context of and financial concern. Tenisha endorsed severe sadness as a response of her 's . They were for 43 years. Her was Tenisha's TITLE SEARCHER and who provided financial support to their home. Tenisha finds it difficult to keep a routine and worries about the upcoming payments of her apartment. Currently engaged in MH services with [facility] / [facility]. Tenisha was engaged with open-ended questions, reflective listening and was provided a safe space to share emotions and talk about her . clinician reviewed and assessed for risk, current stressors, triggers and protective factors. Tenisha was recommended to continue with current services provided by [facility] at [facility]. clinician will be available if needed/requested during her next medical appointment. PLAN: (check all that apply) Continue with current services (defined as services in the past 12 months) . Pt is currently engaged with OP and psychiatry services at [facility] / [facility]. clinician will be available if requested next time during patient's medical appointment. Assessment & Plan (02/05/2024 10:39 AM EDT): During IBH Consult Tenisha presenting with depressed mood, loss of interests/pleasure , changes in sleep difficulty staying asleep , change in appetite or weight reduce appetite, trouble concentrating, thoughts of worthlessness or guilt, fatigue/loss of energy, inappropriate guilt , hopelessness, worthlessness , difficulty concentrating, anger and disbelief about the passing of her , for a period of 0-6 months for some symptoms; in the context of and financial concern. Tenisha endorsed severe sadness as a response of her 's . They were for 43 years. His was his TITLE SEARCHER and who provided financial support to their home. Tenisha finds it difficult to keep a routine and worries about the upcoming payments of her apartment. Currently engaged in MH services with [facility] / [facility]. Tenisha was engaged with open-ended questions, reflective listening and was provided a safe space to share emotions and talk about her , Lauro. PLAN: (check all that apply) Continue with current services (defined as services in the past 12 months) Behavioral Health Integration Plan Internal Follow up with [facility] Patient Self Plan Patient to utilize skills provided in intervention , Patient to reach out to [facility] team as needed, Comply with medication , and Patient to engage in OP therapy . Pt is currently engaged in MH services with [facility] at [facility] for OP individual therapy and psychiatry. Pt would like to follow-up with [facility] clinician as needed. 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 eleno fied surface antigen) 05/07/2012 Influenza, seasonal, injecta ble, preservative free 06/25/2024 Moderna Covid-19 Vaccine 12+ 03/21/2022, 09/07/2021,11/28/2020,10/31 Moderna Covid-19 Vaccine 6+ Bivalent 09/16/2022 Pfizer Covid-19 Vaccine 12+ 06/25/2024, Pfizer Covid-19 Vaccine 12+ Bivalent 02/12/2023 Pneumococcal Conjugate PCV 13 04/16/2012 Pneumococcal Conjugate PCV 20 01/20/2024 Pneumococcal Polysaccharide PPSV23 10/14/2013,,09/12/2010 Tdap 06/13/2015 Social History Tobacco Use Types Packs/Day Years Used Date Smoking Tobacco: Never Passive Smoke Exposure: Never Smokeless Tobacco: Never Tobacco Cessation:Counseling Given: Not Answered Alcohol Use Standard Drinks/Week Comments Never 0 (1 standard drink = 0.6 oz pur e alcohol) Depression Answer Date Recorded Patient Health Questionnaire-9 Score 15 03/08/2024 Patient Health Questionnaire-9 Score 15 03/08/2024 Last PHQ-9: Questionnaire Data Not on file 0 03/08/2024 Housing Stability Answer Date Recorded What is your housing situation today? I have celestino felix 01/20/[address] you li ve. Do you have problems with any of the following? I am not sure 01/20/2024 Food Insecurity Answer Date Recorded Within the past 12 months, y ou worried that your food would run out before you got money to buy more: Sometimes True 2023 Within the past 12 months,th e food you bought just didn't last and you didn't have enough money to get more: Never True 01/20/2024 Transportation Answer Date Recorded In the past 12 months, has l ack of transportation kept you from medical appts, meetings, work or from getting things needed for daily living? No 01/20/2024 Utilities Answer Date Recorded In the past 12 months, has t he electric, gas, oil or water company threatened to shut off services in your home? Yes 01/20/2024 Depression Answer Date Recorded Patient Health Questionnaire-2 Score 5 03/08/2024 Comments Unknown Sex and Gender Information Value Date Recorded Sex Assigned at Female 06/17/2022 10:19 AM EDT Legal Sex Female 10:19 AM EDT Gender Identity Female 06/17/2022 10:19 AM EDT Sexual Orientation Straight 06/17/2022 10 :19 AM EDT Last Filed Vital Signs Vital Sign Reading Time Taken Comments Blood Pressure 120/70 06/25/2024 10:33 AM EST Pulse 72 06/25/2024 10:33 AM EST Temperature 36.5 ??C (97.7 ??F) 06/25/2024 10:[address] Respiratory Rate 19 06/25/2024 10:33 AM EST Oxygen Saturation 97% 06/25/2024 10:33 AM EST Inhaled Oxygen Concentration - - Weight 87.7 kg (193 lb 6 oz) 06/25/2024 10:33 AM EST Height 160 cm (5' 3 ) 06/25/2024 10:33 AM EST Body Mass Index 34.25 06/25/2024 10:33 AM EST Plan of Treatment Upcoming Encounters Date Type Department Care Team (Late st Contact Info) Description 01/07/2025 2:00 PM EDT Office Visit [facility] [address] [place] [address] Flaquita Colunga, OD [address] [place] [address] Health Maintenance Due Date Last Done Comments CT Colonography 1961 Colonoscopy 1961 Colorectal Cancer Screening 1961 FIT DNA/Cologuard 1961 FIT 1961 FOBT 1961 HIV Screening 1961 Sigmoidoscopy 1961 Diabetes: Foot Exam 1971 Eye Exam 1971 Alcohol/Substance Use Screening 1973 Hepatitis C Screening 1979 Pap Smear 1982 Cervical Cancer Screening 1991 HPV/Cotest 1991 Mammogram 2001 Zoster Vaccines (1 of 2) 2011 RSV Patients and Patients Aged 60 years or older (1 - Risk 60-74 years 1-dose series) 2021 Lipid Panel 03/21/2023 03/21/2022, 02/16, 01/30/2021 Depression Monitoring (PHQ-9) 09/08/2024 03/08/2024, 03/08/2024 Diabetes: Hemoglobin A1C 12/23/2024 024, 01/20/2024, 02/12/2023, Additional history exists SDOH Screening 01/19/2025 01/20/2024 Depression Screening 03/08/2025 03/08/2024, 03/08/20 24 DTaP/Tdap/Td Vaccines (2 - Td or Tdap) 06/13/2025 06/13/2015 Tobacco Screening 06/25/2025 06/25/2024 Hepatitis B Vaccines Completed 11/21/2016, 04/30/2016, 03/29/2016, Additional history exists Pneumococcal Vaccine: 50+ Years Completed 01/20/2024, 10/14/2013, 04/16/2012, Additional history exists COVID-19 Vaccine Completed 06/25/2024, 11/2023, 02/12/2023, Additional history exists Influenza Vaccine Completed 06/25/2024, , 09/07/2021, Additional history exists HIB Vaccines Aged Out No longer eligi ble based on patient's age to complete this topic HPV Vaccines Aged Out No longer eligi ble based on patient's age to complete this topic Hepatitis A Vaccines Aged Out No long er eligible based on patient's age to complete this topic IPV Vaccines Aged Out No longer eligi ble based on patient's age to complete this topic Meningococcal Vaccine Aged Out No soren mary eligible based on patient's age to complete this topic RSV under 20 months Aged Out No longe r eligible based on patient's age to complete this topic Rotavirus Vaccines Aged Out No longer eligible based on patient's age to complete this topic Procedures Procedure Name Priority Date/Time Associated Diagnosis Comments POCT GLYCATED HEMOGLOBIN, TOTAL Routine 06/25/2024 10:35 AM EST Type 2 diabetes mellitus with chronic kidney disease, with long-term current use of insulin, unspecified CKD stage ([facility]) LIPID PANEL, STANDARD Routine 03/21/2022 1:37 PM EDT from Last 3 Months or Most Recently Relevant to Health Maintenance Results * POCT HGB A1C (06/25/2024 10:35 AM EST) Pathologist [facility] Hemoglobin A1C 5.5 4.0 - 6.0 % QC Media Lot # [id number] Lot# Expiration Date Blood 06/25/2024 10:3 5 AM EST Nan Shaw DO POINT OF CARE TEST ENTER/SNOW T ORDERABLES Final Result * (ABNORMAL) LIPID PANEL, STANDARD (03/21/2022 1:37 PM EDT) Chol/HDLC Ratio 2.8 <5.0 (calc) [facility] Cholesterol, Total 143 <200 mg/dL [facility] HDL Cholesterol 52 > OR = 50 mg/dL [facility] LDL Cholesterol 63 mg/dL (calc) [facility] Comment: Reference range: <100 ?? Desirable range <100 mg/dL for primary prevention; ?? <70 mg/dL for patients with CHD or diabetic patients ?? with > or = 2 CHD risk factors. ?? LDL-C is now calculated using the Shante ?? calculation, which is a validated novel method providing ?? better accuracy than the Friedewald equation in the ?? estimation of LDL-C. ?? Malcolm MARTINEZ et al. OLEKSANDR. 2013;310(19): 5013-6343 ?? (http://OptixConnect.Gravity Jack/faq/DHB712) Non-HDL Cholesterol 91 <130 mg/dL (calc) [facility] Comment: For patients with diabetes plus 1 major ASCVD risk ?? factor, treating to a non-HDL-C goal of <100 mg/dL ?? (LDL-C of <70 mg/dL) is considered a therapeutic ?? option. Triglycerides 210(H) <150 mg/dL [facility] Comment: ?? If a non-fasting specimen was collected, consider repeat triglyceride testing on a fasting specimen if clinically indicated. ?? Eric et al. J. of Clin. Lipidol. 2015;9:129-169. ?? 03/21/2022 1:37 PM EDT us Nan Shaw DO LAB BLOOD ORDERABLES Final R esult [facility] [address] from Last 3 Months or Most Recently Relevant to Health Maintenance [facility] Care Teams Film Historian Relationship Specialty Start Date End Date Nan Shaw DO [address] [place] [id number] PCP - General Family Medicine 07/30/12
--- OUTSIDE RECORDS SUMMARY | 2024-10-20 17:02 | XMS_ITS | Encounter Summary ---
Author Organization [employer] Address [address] [place] [address] Care Team Providers Care Physically Impaired Teacher Name Role Phone MaikolNan corbin Primary Care Provider + [phone] Reason for Visit * Reason Comments Med Refill Encounter Details Date Type Department Care Team (Late st Contact Info) Description 06/14/2023 Refill [facility] [address] [place] [address] Name, MD Hamzah [address] [place] [address] Social History Tobacco Use Types Packs/Day Years Used Date Smoking Tobacco: Never Passive Smoke Exposure: Never Smokeless Tobacco: Never Alcohol Use Standard Drinks/Week Comments Never 0 (1 standard drink = 0.6 oz pur e alcohol) Depression Answer Date Recorded Patient Health Questionnaire-9 Score 0 09/16/2022 Housing Stability Answer Date Recorded What is your housing situation today? I have celestino felix 06/03/[address] you li ve. Do you have problems with any of the following? None of the above 06/03/2023 Food Insecurity Answer Date Recorded Within the past 12 months, y ou worried that your food would run out before you got money to buy more: Never True 06/03/2023 Within the past 12 months,th e food you bought just didn't last and you didn't have enough money to get more: Never True Transportation Answer Date Recorded In the past 12 months, has l ack of transportation kept you from medical appts, meetings, work or from getting things needed for daily living? No 06/03/2023 Utilities Answer Date Recorded In the past 12 months, has t he electric, gas, oil or water company threatened to shut off services in your home? No 06/03/2023 Depression Answer Date Recorded Patient Health Questionnaire-2 Score 0 09/16/2022 Comments Unknown Sex and Gender Information Value Date Recorded Sex Assigned at Female 06/17/2022 10:19 AM EDT Legal Sex Female 10:19 AM EDT Gender Identity Female 06/17/2022 10:19 AM EDT Sexual Orientation Straight 06/17/2022 10 :19 AM EDT documented as of this encounter Plan of Treatment Upcoming Encounters Date Type Department Care Team (Late st Contact Info) Description 01/07/2025 2:00 PM EDT Office Visit [facility] OPTOMETRY [address] [place] [address] Keanu, Flaquita, OD [address] [place] [address] documented as of this encounter Visit Diagnoses Not on filedocumented in this encounter Additional Health Concerns Assessment Noted Time PHQ-9 Depression Total Score: 0 09/16/19 23 11:12 AM EST documented as of this encounter Care Teams Physically Impaired Teacher Relationship Specialty Start Date End Date Nan Shaw DO [address] [place] [address] PCP - General Family Medicine 07/30/12 documented as of this encounter
--- OUTSIDE RECORDS SUMMARY | 2024-10-20 17:02 | XMS_ITS | Encounter Summary ---
Author Organization [facility] Address [address] 7[address] [place] [address] Care Team Providers Care Senior Technical Architect Name Role Phone Nan Shaw DO Primary Care Provider Encounter Details Date Type Department Care Team (Latest Contact Info) Description 11/24/2018 Abstract [facility] Dental, Provider, DDS Social History Tobacco Use Types Packs/Day Years Used Date Smoking Tobacco: Never Assessed Comments Unknown Sex and Gender Information Value [...] Description 01/07/2025 2:00 PM EDT Office Visit [facility] [address] [place] [address] Flaquita Colunga, OD [address] [place] [address] documented as of this encounter Visit Diagnoses Not on filedocumented in this encounter Care Teams Senior Technical Architect Relationship Specialty Start Date End Date Nan Shaw DO [address] [place] [address] PCP - General Family Medicine 07/30/12 documented as of this encounter
--- OUTSIDE RECORDS SUMMARY | 2024-10-20 17:02 | XMS_ITS | Encounter Summary ---
Author Organization [facility] Address [address] [place] [address] Care Team Providers Care Loan Services Professional Name Role Phone Nan Shaw DO Primary Care Provider Encounter Details Date Type Department Care Team (Late Contact Info) Description 09/17/2022 Telephone [facility] MED[facility] [address] [place], [place] [phone] Nan Shaw DO [address] [place] [address] Social History Tobacco Use Types Packs/Day Years [...] Orientation Straight 06/17/2022 10 :19 AM EDT COVID-19 Exposure Response Date Recorded In the last 10 days, have yo u been in contact with someone who was confirmed or suspected to have Coronavirus/COVID-19? No / Unsure 09/16/2022 10:40 AM EST documented as of this encounter Plan of Treatment Upcoming Encounters Date Type Department Care Team ([facility] Contact Info) Description 01/07/2025 2:00 PM EDT Office Visit [facility] OPT[facility] [address] [place] [address] Keanu, Flaquita, OD [address] [place] [address] documented as of this encounter Visit Diagnoses Not on filedocumented in this encounter Additional Health Concerns Assessment Noted Time PHQ-9 Depression Total Score: 0 09/16/19 23 11:12 AM EST documented as of this encounter Care Teams Loan Services Professional Relationship Specialty Start Date End Date Nan Shaw DO [address] [place] [address] PCP - General Family Medicine 07/30/12 documented as of this encounter
--- OUTSIDE RECORDS SUMMARY | 2024-10-20 17:02 | XMS_ITS | Encounter Summary ---
Author Organization [employer] Address [address] [facility] [address] [place] [address] Care Team Providers Care Transit Mix Operator Name Role Phone Valeria Nan Primary Care Provider [phone] Reason for Visit * Reason Comments Med Refill Encounter Details Date Type Department Care Team (Late st Contact Info) Description 11/03/2022 Refill [facility] [address] [place] [address] Lizett Suggs FNP [address] [place], [place] [phone] Social History Tobacco Use Types Packs/Day Years [...] Description 01/07/2025 2:00 PM EDT Office Visit [facility] OPTOM[facility] [address] [place] [address] Keanu, Flaquita, OD [address] [place] [address] documented as of this encounter Visit Diagnoses Not on filedocumented in this encounter Additional Health Concerns Assessment Noted Time PHQ-9 Depression Total Score: 0 09/16/19 23 11:12 AM EST documented as of this encounter Care Teams Transit Mix Operator Relationship Specialty Start Date End Date Nan Shaw DO [address] [place] [address] PCP - General Family Medicine 07/30/12 documented as of this encounter
--- OUTSIDE RECORDS SUMMARY | 2024-10-20 17:02 | XMS_ITS | Encounter Summary ---
Author Organization [employer] Address [address] [facility] 7[address] [place] [address] Care Team Providers Care Bouffant Curtain Machine Tender Name Role Phone Nan Shaw DO Primary Care Provider [phone] Reason for Visit * Reason Comments Med Refill Encounter Details Date Type Department Care Team (Late st Contact Info) Description 07/16/2023 Refill [facility] MED[facility] [address] [place], [place] [phone] Nan Shaw DO [address] [place], [place] [phone] Social History Tobacco Use Types Packs/Day Years [...] Description 01/07/2025 2:00 PM EDT Office Visit [facility] OPTOMET[facility] [address] [place] [address] Keanu, Flaquita, OD [address] [place] [address] documented as of this encounter Visit Diagnoses Not on filedocumented in this encounter Additional Health Concerns Assessment Noted Time PHQ-9 Depression Total Score: 0 09/16/19 23 11:12 AM EST documented as of this encounter Care Teams Bouffant Curtain Machine Tender Relationship Specialty Start Date End Date Nan Shaw DO [address] [place], [place] [phone] PCP - General Family Medicine 07/30/12 documented as of this encounter
--- OUTSIDE RECORDS SUMMARY | 2024-10-20 17:02 | XMS_ITS | Encounter Summary ---
Author Organization [facility] Address [address] [facility] 7 [place] [address] Care Team Providers Care Transit Planning Director Name Role Phone Nan Shaw DO Primary Care Provider Encounter Details Date Type Department Care Team (Late st Contact Info) Description 08/16/2022 Telephone [facility] MED[facility] [address] [place] [address] Nan Shaw DO [address] [place] [address] Social History Tobacco Use Types Packs/Day Years [...] Description 01/07/2025 2:00 PM EDT Office Visit [facility] OPTOM[facility]RY [address] [place] [address] Keanu, Flaquita, OD [address] [place] [address] documented as of this encounter Visit Diagnoses Not on filedocumented in this encounter Care Teams Transit Planning Director Relationship Specialty Start Date End Date Nan Shaw DO [address] [place] [address] PCP - General Family Medicine 07/30/12 documented as of this encounter
--- OUTSIDE RECORDS SUMMARY | 2024-10-20 17:02 | XMS_ITS | Continuity of Care Document ---
Author Organization [facility] Address [address] [place] [phone]- Care Team Providers Care Roll On Worker Name Role Phone Nan Shaw DO Primary Care Physician Encounter [facility] NBR [id number] Date(s): 10/01/24 - 10/01/[address] [address]- Encounter Diagnosis Tracheostomy care(Final) - 10/01/24 Throat pain(Final) - 10/01/24 Tracheostomy present(Final) - 10/01/24 Globus sensation(Final) - 10/01/24 Discharge Disposition: A-D/C Home Attending Physician: Janice Cope MD Admitting Physician: Janice Cope MD Referring Physician: Not on Staff, Referring MD Encounter Type: Disch ES Allergies, Adverse Reactions, Alerts Substance Criticality Severity Reaction Reaction Severity Status penicillin 1 itching Active Haldol laryngospasm Active 1Tolerates cephalosporins (ceftriaxone, cefepime) Immunizations Given and Recorded Vaccine Date Status Refusal Reason SARS-CoV-2 (COVID-19) mRNA-1273 vaccine 11/28/20 R ecorded SARS-CoV-2 (COVID-19) mRNA-1273 vaccine 10/31/20 R ecorded influenza virus vaccine, inactivated 10/14/13 Give n pneumococcal 23-valent vaccine 10/14/13 Given Medications Ambien Tablet = 10 mg, By Mouth, Daily at bedtime, PRN Insomnia, 0 Refills, Maintenance, 02/20/13 10:38:22 PM EDT Start Date: 02/20/13 Status: Ordered Repeat number: 1 Aspirin = 81 mg, By Mouth, Daily, 0 Refills, Maintenance, 10/12/13 8:46:09 PM EST Start Date: 10/12/13 Status: Ordered Repeat number: 1 budesonide 0.5 mg/2 mL inhalation suspension 0.5 mg, 2, mL, Neb, 2 times a day, # 60 mL, Refills 0, Tot. Refills 0, Maintenance, 06/29/19 2:02:20 PM EST, Inhalation Suspension, Route to Pharmacy Electronically, [id number], [facility] - Start Date: 06/29/19 Status: Ordered Quantity: 60.0 Unit: mL Repeat number: 1 DuoNeb 3 mg-0.5 mg/3 ml inhalation solution 3 mL, Inhalation, 4 times a day, PRN Wheezing/Shortness of Breath, 0 Refills, Maintenance, 10/12/13 8:47:53 PM EST Start Date: 10/12/13 Status: Ordered Repeat number: 1 fenofibrate 54 mg oral tablet 1 tablet = 54 mg, By Mouth, Daily, 0 Refills, Maintenance, 11/12/18 10:53:08 AM EDT Start Date: 11/12/18 Status: Ordered Repeat number: 1 Fish Oil 1000 mg oral capsule 1 capsule = 1,000 mg, By Mouth, 2 times a day, 0 Refills, Maintenance, 11/12/18 10:51:35 AM EDT, Capsule Start Date: 11/12/18 Status: Ordered Repeat number: 1 furosemide 20 mg oral tablet 2 tablet = 40 mg, By Mouth, Daily, 0 Refills, Maintenance, 12/31/12 4:18:20 PM EDT, Tablet Start Date: 12/31/12 Status: Ordered Repeat number: 1 HumaLOG Junior Jeronimo 100 units/mL injectable solution See Instructions, 15-20 units Subcutaneous Injection sliding scale , 3 times a day before meals, 0 Refills, Maintenance, 11/12/18 10:49:39 AM EDT, Solution Start Date: 11/12/18 Status: Ordered Repeat number: 1 insulin glargine 100 u/ml subcutaneous solution = 60 units, Subcutaneous Injection, Daily in AM, 0 Refills, Maintenance, 11/15/18 11:46:17 AM EDT, Injection Start Date: 11/15/18 Status: Ordered Repeat number: 1 isosorbide mononitrate 30 mg oral tablet, extended release 30 mg, 1, tablet, By Mouth, Daily in AM, # 30 tablet, Refills 0, Maintenance, 11/12/18 10:48:42 AM EDT Start Date: 11/12/18 Status: Ordered Quantity: 30.0 Unit: tablet Repeat number: 1 levothyroxine 137 mcg (0.137 mg) oral capsule By Mouth, Daily, 0 Refills, Maintenance, 06/29/19 2:03:57 PM EST, Capsule Start Date: 06/29/19 Status: Ordered Repeat number: 1 lisinopril 5 mg oral tablet 5 mg, 1, tablet, By Mouth, Daily, # 30 tablet, Refills 0, Maintenance, 11/12/18 10:46:49 AM EDT Start Date: 11/12/18 Status: Ordered Quantity: 30.0 Unit: tablet Repeat number: 1 LORazepam 1 mg oral tablet 1 tablet = 1 mg, By Mouth, 4 times a day, PRN as needed for anxiety, TAKE 1 TABLET BY MOUTH FOUR TIMES DAILY NEEDED Start Date: 11/12/18 Status: Ordered Repeat number: 1 metoprolol 25 mg oral tablet 1 tablet = 25 mg, By Mouth, 2 times a day, 0 Refills, Maintenance, 12/31/12 4:16:52 PM EDT, Tablet Start Date: 12/31/12 Status: Ordered Repeat number: 1 oxcarbazepine 300 mg oral tablet 2 tablet = 600 mg, By Mouth, Daily at bedtime, # 60 tablet, 0 Refills, Maintenance, 12/19/12 1:45:24 PM EDT, Tablet Start Date: 12/19/12 Status: Ordered Quantity: 60.0 Unit: tablet Repeat number: 1 oxcarbazepine 300 mg oral tablet 1 tablet = 300 mg, By Mouth, Daily in AM, 0 Refills, Maintenance, 10/12/13 8:43:47 PM EST Start Date: 10/12/13 Status: Ordered Repeat number: 1 oxybutynin 5 mg/5 mL oral syrup 5 mL = 5 mg, By Mouth, 2 times a day, TAKE 5ml BY MOUTH TWICE DAILY Start Date: 11/12/18 Status: Ordered Repeat number: 1 Prilosec 20 mg oral enteric coated capsule 1 capsule = 20 mg, By Mouth, Daily, 0 Refills, Maintenance, 10/12/13 8:45:56 PM EST Start Date: 10/12/13 Status: Ordered Repeat number: 1 ProAir HFA 90 mcg/inh inhalation aerosol with adapter 1, puffs, Inhalation, Every 6 hours, PRN, # 8.5 Gm, Refills 0, Maintenance, 11/12/18 10:52:53 AM EDT, Aerosol Start Date: 11/12/18 Status: Ordered Quantity: 8.5 Unit: g Repeat number: 1 risperiDONE 1 mg oral tablet 3 mg, By Mouth, Daily at bedtime, Refills 0, Maintenance, 08/26/17 12:14:36 PM EST Start Date: 08/26/17 Status: Ordered Repeat number: 1 Robitussin DM Liquid 10 mL, By Mouth, Every 4 hours, PRN Cough, 0 Refills, Maintenance, 06/29/19 2:02:30 PM EST, Syrup Start Date: 06/29/19 Status: Ordered Repeat number: 1 rosuvastatin 40 mg oral tablet 1 tablet = 40 mg, By Mouth, Daily, TAKE 1 TABLET AT BEDTIME (for cholesterol) Start Date: 11/12/18 Status: Ordered Repeat number: 1 sertraline 100 mg oral tablet 2 tablet = 200 mg, By Mouth, Daily at bedtime, TAKE 2 TABLETS BY MOUTH EVERY DAY AT BEDTIME Start Date: 11/12/18 Status: Ordered Repeat number: 1 Vitamin D3 2000 intl units oral tablet 1 tablet = 2,000 International_Units, By Mouth, Daily, 0 Refills, Maintenance, 11/12/18 10:53:23 AM EDT Start Date: 11/12/18 Status: Ordered Repeat number: 1 Problem List Condition Confirmation Course Effective Dates Status H ealth Status Informant Asthma Confirmed Active ; CHF - Congestive heart failure Confirmed Active Coronary artery disease Confirmed Active Depression Confirmed Active Dyslipidemia Confirmed Active Hypertension Confirmed Active Hypothyroidism Confirmed Active Ischemic cardiomyopathy Confirmed Active 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 Reports phlegm. Placed on blowby O2 10L; Reason: Other:; Shortness of Breath, Fever; Clinical Question(s): Pneumonia COMPARISON: 06/22/2019, 12/07/2023. The study is somewhat limited by patient's body habitus and a nonoptimal inspiration. FINDINGS: LINES AND TUBES: A tracheostomy tube remains in place. LUNGS AND PLEURA: There is an apparent increase in markings bilaterally which I think is due more to overlying breasttissue than actual lung path allergy. No pleural effusion. No pneumothorax. HEART, MEDIASTINUM AND SHELL: Heart is slightly enlarged. Patient has had a median sternotomy. Aorta is tortuous and unfolded. BONES AND SOFT TISSUES: No acute abnormality. IMPRESSION: Mild stable cardiomegaly. An apparent increase in markings bilaterally which is felt to be due to overlying breast tissue as opposed to lung pathology. If patient remains symptomatic I would suggest getting a repeat PA and lateral film. WSN: [id number] Ordering Physician: Janice Cope Dictated By: Denver Banegas MD Dictated Date/Time: 10/01/24 8:41 am Reviewed By: Denver Banegas MD Signed By: Denver Banegas MD Signed Date/Time: 10/01/24 8:41 am Transcribed By: NIC Transcribed Date/Time: 10/01/24 8:36 am * Exam Date Time Procedure Performing Provider Status 10/01/24 4:[address] Soft Tissue Neck W/ Contrast Fiona Dill; Auth (Verified) Notes: (CT Soft Tissue Neck W/ Contrast) Reason For Exam: trach in place, ?blockage vs stenosis;Abscess/Inflammation RESULT: CT Soft Tissue Neck W/ Contrast CT Soft Tissue Neck W/ Contrast INDICATION/CLINICAL QUESTION: Hx of Present Illness: coming from home, diff breathing since this am. reports phlegm. Placed on blowby O2 10L; Reason: Abscess Inflammation; trach in place, ?blockage vs stenosis; Clinical Question(s): Tracheal Stenosis Compression; Order Comment: / Tracheal Stenosis/C ompression. TECHNIQUE: Spiral CT neck with IV contrast formatted in 3 planes. 100 cc of Isovue 300 was administered intravenously. Weight-based protocol using automatic tube modulation was used to optimize exposure parameters. CTDIvol Body: 13.60 mGy, DLP Body: 824 mGy*cm. COMPARISON: CT neck 12/07/2023 FINDINGS: Boring Machine Operator Helper View Findings, Lines and Tubes: Tracheostomy in place, which is patent. Intracranial structures: Visualized portions are unremarkable. Orbits: Visualized portions are unremarkable. Paranasal sinuses and mastoids: Mucous retention cyst in the right maxillary sinus. The remainder of the paranasal sinuses are clear. Mastoid air cells are clear. Mucosal surfaces: Mucosal surfaces appear normal and symmetric, including the pharynx, larynx, and visualized portions of the upper trachea and esophagus. There is mild anterior bowing of the posterior membrane of the trachea on the expiratory phase without significant deformity of the tracheal or bronchial cartilage. The lumen of the trachea narrows by 30% on the expiratory phase, though does not meet criteria for tracheomalacia. The wall of the trachea along the course of the tracheostomy tube are closely approximated to the tracheostomy tube. Previous clinically known subglottic stenosis is not well assessed in the presenceof the tracheostomy. Superficial and deep neck spaces: No mass, fluid collection, or inflammatory change. Cervical lymph nodes: Normal in size and morphology. Salivary glands: The parotid glands and submandibular glands are normal. Thyroid gland: Normal CT appearance. Vascular structures: Unremarkable. Upper chest: The upper lungs are clear. The upper mediastinum is unremarkable. Bones and teeth: Mild degenerative changes of the spine. IMPRESSION: No acute abnormality. The tracheostomy tube and trachea are patent. No significant tracheal collapse on the expiratory phase. No specific findings to suggest tracheomalacia. No soft tissue abscess. I have personally reviewed the images and I agree with this report. WSN: [id number] Ordering Physician: Liu Silverman Dictated By: Jakub Vidales MD Dictated Date/Time: 10/01/24 8:30 am Reviewed By: Shamir Jones MD Signed By: Shamir Jones MD Signed Date/Time: 10/01/24 8:35 am Transcribed By: NIC Transcribed Date/Time: 10/01/24 6:27 am Vital Signs Most recent to oldest [Reference Range]: 1 2 3 Oxygen Saturation [94-100 %] 96 % (10/01/24 9:24 AM) 95 % (10/01/24 8:36 AM) 95 % (10/01/24 5:02 AM) Pulse Rate [55-90 bpm] 79 bpm (10/01/24 9:24 AM) 78 bpm (10/01/24 8:36 AM) 75 bpm (10/01/24 5:02 AM) Blood Pressure [90-138/55-84 mm Hg] 150/70mm Hg *H* (10/01/24 9:24 AM) 140/75mm Hg *H* (10/01/24 8:36 AM) 134/88mm Hg (10/01/24 5:02 AM) Respiratory Rate [16-30 br/min] 26 br/min (10/01/24 9:24 AM) 17 br/min (10/01/24 8:36 AM) 19 br/min (10/01/24 5:02 AM) Temperature [96.8-100.4 DegF] 98.6 DegF (10/01/24 12:29 AM) Mode of Delivery (Oxygen) Room air (10/01/24 9:24 AM) Room air (10/01/24 8:36 AM) Trach mask (10/01/24 5:02 AM) Temperature Route Oral (10/01/24 12:29 AM) Social History Social History Type Response Smoking Status Never smoker entered on: 01/30/15 Sex Female Sex Representation Female (finding) Patient Care team information Care Team Personnel Name: Mario Choudhury RN Position: S RN Member Role: Primary Care Nurse Name: Kaela Bronson RN Position: S AMB Nurse Member Role: Primary Care Nurse Name: Kayla Brito RN Position: S RN Member Role: Primary Care Nurse Name: Kelli Wiseman RN Position: [facility] RN Member Role: Primary Care Nurse Name: Shalom Raygoza RN Position: [facility] RN Member Role: Primary Care Nurse Name: Hardik Castillo MD Position: [facility] Physician - Pulm/Critical Care Member Role: Lifetime Consulting Physician Address: [address] [place] [address]- [place] [employer]: Name: Nan Shaw DO Position: [facility] Outreach Member Role: PCP Address: [address] [place] [address]- [place] [employer]: Name: Rafaela Godwin Position: [facility] RN Member Role: Primary Care Nurse Care Team Related Persons Name: NARCISA FERRER Name: ROB FERRER Name: IGOR FERRER Insurance Providers Guarantor name: NA Health Plan Information #: 1 Payer: [employer] Member Number: [id number] Policy Number: NA Group Number: NA Health Plan Information #: 2 Payer: [facility] Member Number: [id number] Policy Number: NA Group Number: NA
== END ==
LOC: HO.CARD 14:06
PROVIDERS: PCP Family Medicine; Visit Provider Internal Medicine Cardiovascular Disease
DX: I50.9 Heart failure, unspecified (principal)
CPT/HCPCS: 93306; Q9957

== ENCOUNTER → 2024-10-20 14:11 | Outpatient (BNV) | payer MEDICAID, SELFPAY | PROVIDERS: PCP Family Medicine; Visit Provider Internal Medicine Cardiovascular Disease | DX: I50.9 Heart failure, unspecified (principal) | CPT/HCPCS: 93306 ==

== ENCOUNTER 2025-02-14 12:04 | Outpatient (AMB) | payer MEDICAID, SELFPAY ==
--- OUTSIDE RECORDS SUMMARY | 2025-02-14 12:43 | XMS_ITS | Encounter Summary ---
Author Organization [employer] Address [address] [facility] [address] [place] [address] Care Team Providers Care Thread Milling Machine Set Up Operator Name Role Phone AntonioNan johnston Primary Care Provider [phone] Reason for Visit * Reason Comments Med Refill Encounter Details Date Type Department Care Team (Late st Contact Info) Description 06/14/2023 Refill [facility] [address] [place], [place] [phone] Name, MD Hamzah [address] [place] [address] Social History Tobacco Use Types Packs/Day Years [...] as of this encounter Plan of Treatment Not on file documented as of this encounter Visit Diagnoses Not on filedocumented in this encounter Additional Health Concerns Assessment Noted Time PHQ-9 Depression Total Score: 0 09/16/19 23 11:12 AM EST documented as of this encounter Care Teams Thread Milling Machine Set Up Operator Relationship Specialty Start Date End Date Nan Shaw DO [address] [place] [address] PCP - General Family Medicine 07/30/12 documented as of this encounter
--- NOTE | 2025-02-14 12:45 | MHC.OFFVIS ---
Vital Signs 02/14/25 12:46 Height 5 ft 4 in BMI Reason not done Patient refused/unable BP 112/68 Blood Pressure Location Lt brachial Position Sitting Pulse 83 Pulse Source Monitor Intake Visit Reasons: r/s 02/10/25 1 yr followup w/ekg [employer] Required: Yes [employer] Name: [place] [id number] Allergies haloperidol (Haldol) Allergy (Severe, Verified 08/24/24 14:09) rash Penicillins Allergy (Severe, Verified 08/24/24 14:09) HIVES Sulfa (Sulfonamide Antibiotics) Allergy (Severe, Verified 08/24/24 14:09) Rash sulfamethoxazole (From BACTRIM) Allergy (Mild, Verified 08/24/24 14:09) ITCHING/HIVES trimethoprim (From BACTRIM) Allergy (Mild, Verified 08/24/24 14:09) ITCHING/HIVES From HALDOL Allergy (Mild, Uncoded 08/24/24 14:09) RASH Medication List - Last Reconciled 02/14/25 by Delio Miles MD albuterol sulfate 2.5 mg (3 mL) inhalation Q4H PRN 30 days albuterol sulfate 90 mcg/actuation 2 inhalations inhalation Q6H PRN 30 days aspirin 81 mg PO BEDTIME budesonide 0.5 mg (2 mL) inhalation BID 30 days budesonide-formoterol 160-4.5 mcg/actuation (Symbicort) 2 puffs PO BID bupropion HCl 100 mg PO BID bupropion HCl XL 300 mg PO QAM cholecalciferol (vitamin D3) 50 mcg PO DAILY dextromethorphan-guaifenesin 30-600 mg (Mucinex DM) 1 tab PO Q12H 14 days dulaglutide (Trulicity) 1.5 mg subcut QWEEK dupilumab (Dupixent) Loading dose: 600mg SC x 1,then, 300mg SC every 2 weeks 12 months ezetimibe 10 mg PO BEDTIME 90 days fenofibrate 54 mg PO DAILY furosemide 40 mg PO QAM guaifenesin 200 mg (10 mL) PO Q6H PRN 14 days inhalational spacing device (Aerochamber MV spacer) As directed insulin glargine U-300 conc (Toujeo Max U-300 SoloStar) 70 units (0.2333 mL) subcut DAILY insulin lispro (Humalog KwikPen (U-100) Insulin) 15 units breakfast and lunch, 25 units with dinner and 5 units with snack subcut 4 times a day; isosorbide mononitrate ER 30 mg PO DAILY levothyroxine 150 mcg PO DAILY lisinopril 5 mg PO QAM loratadine 10 mg PO DAILY lorazepam 1 mg PO QID metformin 500 mg PO BID metoprolol tartrate 25 mg PO BID montelukast 10 mg PO BEDTIME nebulizers As directed omega-3 fatty acids (Fish Oil Concentrate) 1,000 mg PO BID oxcarbazepine mg PO pen needle, diabetic (Pentips Pen Needle) 1 ea miscellaneous five times a day; risperidone 3 mg PO BEDTIME roflumilast (Daliresp) 250 mcg PO DAILY 30 days rosuvastatin 40 mg PO BEDTIME sertraline 200 mg PO QAM sodium chloride 3% 4 mL inhalation BID 30 days HPI Comments Details: Tenisha comes for follow-up accompanied by her care provider. She is having lot of stress at home due to her younger daughter. When she has significant stress she develops shortness of breath and chest pressure. She says she gets this symptoms about once a week. She describes this symptoms of chest pressure associated with sharp pain that can last up to 5 minutes. Her echocardiogram in October showed [id number] LV systolic dysfunction with LVEF of 40-45%. She has no overt significant progressive heart failure symptoms with no significant orthopnea, PND, leg edema. She takes all her medications regularly. [facility] Medical History Pleuritic chest pain Tracheobronchitis Tracheostomy dependent Ischemic cardiomyopathy Fibroid uterus CHF (congestive heart failure) Urinary incontinence Asthma Anxiety Dysphagia Tracheal stenosis Chronic kidney disease, stage 3 Essential hypertension Hypothyroidism Type 2 diabetes mellitus with chronic kidney disease CAD (coronary artery disease) Dyslipidemia Surgical History Hx of section Hx of tracheostomy Hx of CABG Family History Father Diabetes CVD (cardiovascular disease) Mother Diabetes Hypertension Schizophrenia Social History Household Members: Spouse Alcohol intake: never Patient Tobacco Use Status: Never used Tobacco Review of Systems Const Denies weakness ENT Denies dizziness Card Denies chest pain, Denies chest pain with activity, Denies syncope, Denies rapid heart rate, Denies pedal edema, Denies edema, Denies leg edema, Denies lightheadedness, Denies palpitations, Denies dyspnea, Denies dyspnea on exertion and Denies orthopnea Resp Denies cough, Denies dyspnea and Denies dyspnea on exertion GI Denies hematochezia and Denies change in stool character Musc Denies abnormal gait, Denies muscle cramps, Denies muscle weakness, Denies numbness, Denies radiating pain into limb and Denies tingling Neuro Denies abnormal gait, Denies dizziness, Denies syncope, Denies numbness, Denies tingling and Denies weakness Endo Denies palpitations Physical Exam Vital Signs: Last Vital Signs Pulse 83 02/14/25 12:46 BP 112/68 02/14/25 12:46 Const General: cooperative, comfortable, no acute distress, alert, awake and poor hygiene Nutritional Appearance: obese morbidly obese Orientation/consciousness: patient oriented x3 Limitations: wheelchair Neck Neck: Yes trachea midline, Yes supple, Yes tracheostomy present and Yes other (Difficult to evaluate JVD) Resp Effort & Inspection: normal respiratory effort Auscultation: wheezes expiratory wheezes and throughout and diminished lung sounds Cardio Rate: regular rate Rhythm: regular rhythm and abnormal rhythm Heart sounds: S1 normal heart sound present and S2 normal heart sound present Skin General skin exam: no rashes or lesions noted Neuro General: patient oriented x3 and no focal motor deficits Extrem General: Yes no clubbing, cyanosis or edema Office Procedures EKG Details: EKG shows normal sinus rhythm with an inferior infarct as well as poor R-wave progression with possible anterior infarct [id number], Complete Assessment & Plan Assessment & Plan (1) Cardiomyopathy: Code(s): I42.9 - Cardiomyopathy, unspecified Category: Medical Plan: Patient with intermittent symptoms of chest pain under stressful situation which should suggest myocardial ischemia. She also has new onset LV systolic dysfunction. At this point time she has no overt signs of heart failure. Need to evaluate for graft patency and progressive myocardial ischemia. Would suggest a vasodilating myocardial perfusion imaging to further assess for the same. Meanwhile I have advised her to increase isosorbide to 60 mg daily and takes sublingual nitroglycerin as needed. She has unrelenting chest pain she is advised to come to emergency room. Continue current diuretic dose. Daily weight monitoring avoidance salt loading was discussed. Continue lisinopril as well as metoprolol therapy for neurohormonal modulation. Further treatment based on the findings. (2) CAD (coronary artery disease): Code(s): I25.10 - Atherosclerotic heart disease of [place] coronary artery without angina pectoris Category: Medical Plan: CAD with remote coronary artery bypass grafting with symptoms as above. She requires further workup to evaluate for myocardial ischemia and graft patency. Continue aspirin therapy. Blood pressure is currently well optimized. Increase long-acting nitrates as above. Continue high-intensity statin therapy along with ezetimibe therapy to target goal LDL less than 55 mg/dL. Continue aggressive diabetes management goal hemoglobin A1c less than 7%. Will follow up in the clinic in 2 months time, sooner p.r.n.. Thank you for allowing me to partake in her care Medications: New isosorbide mononitrate ER 60 mg PO DAILY 30 tabs 5RF nitroglycerin do not exceed 3 doses per episode 0.4 mg sublingual Q5M PRN 20 tabs 1RF chest pain Discontinued isosorbide mononitrate ER Discontinued Reason: Doctor's Order 30 mg PO DAILY 90 tabs 3RF I25.10 - Atherosclerotic heart disease of [place] coronary artery without angina pectoris Coding Level of Care Code Est Pt Level 4 (36284) Complex EM visit Add On G2211 Diagnoses Cardiomyopathy I42.9 CAD (coronary artery disease) I25.10 CPT Codes EKG - CPT: 43095-[id number], Complete ([id number])
[2025-02-14 12:46] VITALS: BP 112/68; PULSE 83
== END 2025-02-14 13:11 | disposition home or self-care (01) ==
LOC: HO.HCS 12:04
PROVIDERS: PCP Family Medicine; Visit Provider Internal Medicine Cardiovascular Disease
DX: I42.9 Cardiomyopathy, unspecified (principal); I25.10 Atherosclerotic heart disease of native coronary artery without angina pectoris
CPT/HCPCS: 93010; 99214

== ENCOUNTER → 2025-02-14 12:04 | Outpatient (BNVA) | payer MEDICAID, SELFPAY | PROVIDERS: PCP Family Medicine; Visit Provider Internal Medicine Cardiovascular Disease | DX: I25.10 Atherosclerotic heart disease of native coronary artery without angina pectoris (principal); R06.02 Shortness of breath; I42.9 Cardiomyopathy, unspecified | CPT/HCPCS: 93005; 99212 ==

== ENCOUNTER → 2025-06-13 09:39 | Outpatient (REF) | payer MEDICAID, SELFPAY ==
--- NOTE | ~2025-06-13 | NM_ITS ---
Lexiscan Myocardial perfusion study Indication: Chest pain Technique: The patient was brought in for a Lexiscan perfusion study on 06/13/2025 and was injected 0.4 mg of Lexiscan intravenously. Within a minute of this injection 30 mCi of sestamibi was given intravenously. Images were obtained using the SPECT gamma camera interlaced with the gating device. Images were obtained in supine position. Resting perfusion study was performed on 06/15/2025. Patient was administered 30 mCi of sestamibi intravenously at rest. Images were then obtained in supine position. Total DLP 160 mGy-cm. Images were processed with the software and compared side to side in short axis, horizontal long axis and vertical long axis views. Findings: Raw aquisition reviewed. Arms by the side. The stress perfusion study showed markedly reduced absent tracer uptake in mostly inferior wall, inferior apex and apex; most of the septum. There is some improvement in the inferior wall with CT attenuation correction and hence could have components of diaphragmatic attenuation artifact. The gated study shows reduced LV systolic function with calculated LVEF of 45%. LV cavity is dilated in size. The gated study shows reduced or absent activity involving the inferior wall, septum, apex. Resting study shows slightly improved uptake in the inferior wall, towards the basal portion. Improved uptake in the septum. Gating at rest reveals ejection fraction at 33%. Apical akinesis. Inferior hypokinesis. Septal hypokinesis. The findings are consistent with fixed apical defect that is suggestive of infarct; mixed inferior defect suggestive of infarct and brenda-infarct ischemia; reversible septal defect suggestive of ischemia in the basal to mid portions and fixed or reversible apical septum suggestive of infarct. NM/NM cardiolite stress test Impression: 1. Myocardial perfusion imaging study shows apical infarct; mixed inferior defect suggestive of ischemia/infarct; basal to mid septal ischemia with infarct in the apical part. 2. Gated LVEF is 45% during stress and 33% during rest; correlate with echocardiogram. 3. Transient ischemic dilatation not present, but LV chamber is dilated. EKG component of the test reported separately. Electronically signed by: Devon Gongora MD 06/16/2025 03:53 PM EDT
--- NOTE | 2025-06-13 09:42 | CA_ITS ---
Acquisition Time: 2025-06-13 10:12:06 Total Exercise Time: 00:02:00 Test Indications: CHEST PAIN Medications: ALBUTEROL METFORMIN METOPROLOL LISINOPRIL Protocol: LEXISCAN Max HR: 114 BPM 73% of Pred: 156 BPM Max BP: 122/70 mmHG Max Work Load: 1.0 METS Pharmacological stress tets with Lexiscan while pt swings hre legs in chair, with reports of dizziness and SOB, with isolated PVCs, with normotenisve response to injection. With downsloping ST depression inferlaterally suggestive of ischemia. In recovery, pt treated with IVP Aminophylline 75 mg to reverse Lexiscan after which pt feeling back to baseline. ST segment improved. Nuclear images pending. Test reviewed with Dr. Gongora. Referred By: Paco Mederos Electronically Signed By: Paco Mederos
--- OUTSIDE RECORDS SUMMARY | 2025-06-13 10:58 | XMS_ITS | Encounter Summary ---
Author Organization [employer] Address [address] [facility] [address] [place] [address] Care Team Providers Care Applications Development Analyst Name Role Phone Nan hSaw DO Primary Care Provider [phone] Reason for Visit * Reason Comments Med Refill Encounter Details Date Type Department Care Team (Late st Contact Info) Description 07/16/2023 Refill [facility] MEDICINE [address] [place], [place] [phone] Nan Shaw DO [address] [place], [place] [phone] Social History Tobacco Use Types Packs/Day Years [...] documented as of this encounter Care Teams Applications Development Analyst Relationship Specialty Start Date End Date Nan Shaw DO [address] [place] [id number] PCP - General Family Medicine 07/30/12 documented as of this encounter
--- OUTSIDE RECORDS SUMMARY | 2025-06-13 10:58 | XMS_ITS | Encounter Summary ---
Author Organization [employer] Address [address] [facility] [address] [place] [address] Care Team Providers Care Priming Machine Operator Name Role Phone Nan Shaw DO Primary Care Provider [phone] Encounter Details Date Type Department Care Team (Late st Contact Info) Description 09/17/2022 Telephone [facility] MEDICINE [address] [place], [place] [phone] Nan Shaw DO [address] [place], [place] [phone] Social History Tobacco Use Types Packs/Day Years [...] documented as of this encounter Care Teams Priming Machine Operator Relationship Specialty Start Date End Date Nan Shaw DO [address] [place], [place] [phone] PCP - General Family Medicine 07/30/12 documented as of this encounter
--- OUTSIDE RECORDS SUMMARY | 2025-06-13 10:58 | XMS_ITS | Encounter Summary ---
Author Organization [employer] Address [address] [facility] [address] [place] [address] Care Team Providers Care Conservation Policy Analyst Name Role Phone Nan Shaw DO Primary Care Provider [phone] Reason for Visit * Reason Onset Date Comments Med Refill telephone call 11/03/2022 Encounter Details Date Type Department Care Team (Late st Contact Info) Description 11/03/2022 Refill [facility] MEDICINE [address] [place], [place] [phone] Nan Shaw DO [address] [place], [place] [phone] Social History Tobacco Use Types Packs/Day Years [...] providers signature * Telephone Encounter - Olga Hammonds - 11/08/2022 12:06 PM EDT Pt walked in requesting for Dr. Shaw to send an order for a portable toilet and a hospital bed. Pt states she talked to the Dr about this in her last visit. documented in this encounter Plan of Treatment Not on file documented as of this encounter Visit Diagnoses Not on filedocumented in this encounter Additional Health Concerns Assessment Noted Time PHQ-9 Depression Total Score: 0 09/16/19 23 11:12 AM EST documented as of this encounter Care Teams Conservation Policy Analyst Relationship Specialty Start Date End Date Nan Shaw DO [address] [place] [id number] PCP - General Family Medicine 07/30/12 documented as of this encounter
--- OUTSIDE RECORDS SUMMARY | 2025-06-13 10:58 | XMS_ITS | Encounter Summary ---
Author Organization [id number] Address [address] [facility] [address] [place] [address] Care Team Providers Care Java Analyst Name Role Phone Nan Shaw DO Primary Care Provider [phone] Reason for Visit * Reason Comments Med Refill Encounter Details Date Type Department Care Team (Late st Contact Info) Description 11/03/2022 Refill [facility] MEDICINE [address] [place] [address] Lizett Suggs FNP [address] [place], [place] [phone] Social History Tobacco Use Types Packs/Day Years [...] documented as of this encounter Care Teams Java Analyst Relationship Specialty Start Date End Date Nan Shaw DO [address] [place] [address] PCP - General Family Medicine 07/30/12 documented as of this encounter
--- OUTSIDE RECORDS SUMMARY | 2025-06-13 10:58 | XMS_ITS | Clinical Summary ---
Author Organization [employer] Address [address] [facility] [address] [place] [address] Care Team Providers Care Tractor Mechanic Name Role Phone Valeria Nan Primary Care Provider Allergies Active Allergy Reactions Criticality Noted Date [...] MOUTH EVERY MORNING FOR BLOOD PRESSURE 08/15/20 22 Active loratadine (Claritin) 10 MG tablet TAKE 1 TABLET BY MOUTH ONCE DAILY FOR ALLERGIES 08/15/20 22 Active metoprolol tartrate (Lopressor) 25 MG tablet TAKE 1 TABLET BY MOUTH TWICE DAILY IN THE MORNING AND AT BEDTIME BLOOD PRESSURE 08/15/20 22 Active montelukast (Singulair) 10 MG tablet TAKE 1 TABLET BY MOUTH AT BEDTIME 08/15/20 22 Active nitroglycerin (Nitrostat) 0.4 MG SL tablet DISSOLVE 1 TABLET UNDER THE TONGUE EVERY 5 MINUTES NEEDED FOR CHEST PAIN. CALL 911 IF NO RELIEF 12/28/19 22 Active OXcarbazepine (Trileptal) 300 MG tablet TAKE [...] DAILY 180 capsule 3 11/17/19 24 Active FREESTYLE LITE test stripIndications:Ty pe 2 diabetes mellitus without complication, with long-term current use of insulin (HCC) USE TO TEST BLOOD SUGAR 4 TO 6 TIMES A DAY 100 each 11 02/24/20 24 Active Alcohol Swabs (Alcohol Prep) 70 % pads USE THREE TIMES DAILY AND NEEDED 100 each 06/16/20 24 Active Blood Glucose Monitoring Suppl (FreeStyle Mcallen Lite) w/Device kit Use to test blood sugar 3 times daily 1 kit 06/25/20 24 Active Continuous Glucose Commercial [employer] Head (FreeStyle Mey 2 [place]) device Scan sensor every 8 hours 1 each 06/25/20 24 Active Continuous Glucose Sensor (FreeStyle Mey 2 Sensor) [facility] Apply 1 sensor every 14 days 2 each 06/25/20 24 Active glucose blood (FreeStyle Precision Jalil Test) test strip Use to test blood sugar 3 times daily 100 each 06/25/20 24 2024 Active Dulaglutide 1.5 MG/0.5ML solution auto-injector Inject 0.5 mL (1.5 mg) under the skin 1 (one) time per week. 2 mL 06/25/20 Active levothyroxine (Synthroid, Levoxyl) 137 MCG tabletIndications:H ypothyroidism (acquired) TAKE 1 TABLET BY MOUTH EVERY MORNING 90 tablet 3 11/26/19 25 Active omeprazole (PriLOSEC) [address] capsuleIndications: Chronic gastroesophageal reflux disease TAKE 1 CAPSULE BY MOUTH EVERY MORNING BEFORE A MEAL 90 capsule 11/26/19 25 Active senna (Senokot) 8.6 MG tabletIndications:C hronic constipation TAKE 2 TABLETS BY MOUTH EVERY DAY AT BEDTIME NEEDED FOR CONSTIPATION 180 tablet 3 11/26/19 25 Active TechLite Plus Pen Brinklow 32G X 4 MM [facility] USE FIVE TIMES DAILY 100 each 12/14/19 25 Active metFORMIN (Glucophage) 500 MG tabletIndications:T ype 2 diabetes mellitus with other specified complication, with long-term current use of insulin ([facility]) TAKE 1 TABLET BY MOUTH TWICE DAILY IN THE MORNING AND IN THE EVENING 180 tablet 2 12/22/19 25 Active insulin glargine (Toujeo Max SoloStar) 300 UNIT/ML injectionIndication s:Type 2 diabetes mellitus with other specified complication, with long-term current use of insulin ([facility]) INJECT 60 UNITS SUBCUTANEOUSLY EVERY DAY 6 mL 3 12/23/19 25 Active TRUEplus Lancets 33G miscIndications:Typ e 2 diabetes mellitus with chronic kidney disease, with long-term current use of insulin, unspecified CKD stage ([facility]) TEST BLOOD SUGAR SIX TIMES DAILY 200 each 01/28/20 25 Active fenofibrate (Tricor) 54 MG tabletIndications:O ther hyperlipidemia TAKE 1 TABLET BY MOUTH EVERY MORNING 90 tablet 3 02/23/20 25 Active Multiple Vitamin (Multivitamin) tablet TAKE 1 TABLET BY MOUTH EVERY MORNING 90 tablet 3 02/23/20 25 Active omega-3 acid ethyl esters (Lovaza) 1 g capsule TAKE 1 CAPSULE BY MOUTH TWICE DAILY IN THE MORNING AND AT BEDTIME 180 capsule 3 02/23/20 25 Active cholecalciferol VITAMIN D (Vitamin D-3) 50 MCG (1999) tabletIndications:V itamin D deficiency TAKE 1 TABLET BY MOUTH EVERY MORNING 90 tablet 3 02/23/20 25 Active insulin lispro (HumaLOG) 100 UNIT/ML injectionIndication s:Diabetes 1.5, managed as type 2 (HCC) INJECT 15-25 UNITS SUBCUTANEOUSLY THREE TIMES DAILY WITH MEALS DIRECTED 15 mL 3 03/09/20 25 Active Active Problems Problem Noted Date Diagnosed [...] were for 43 years. Her was Tenisha's DAIRY NUTRITIONIST and who provided financial support to their home. Tenisha finds it difficult to keep a routine and worries about the upcoming payments of her apartment. Currently engaged in MH services with [facility] / [facility]. Tenisha was engaged with open-ended questions, reflective listening and was provided a safe space to share emotions and talk about her . clinician reviewed and assessed for risk, current stressors, triggers and protective factors. Tenisha was recommended to continue with current services provided by [facility] at [facility]. clinician will be available if needed/requested during her next medical appointment. PLAN: (check all that apply) Continue with current services (defined as services in the past 12 months) . Pt is currently engaged with OP and psychiatry services at [facility] / [facility]. clinician will be available if requested next [...] were for 43 years. His was his DAIRY NUTRITIONIST and who provided financial support to their home. Tenisha finds it difficult to keep a routine and worries about the upcoming payments of her apartment. Currently engaged in MH services with [facility] / [facility]. Tenisha was engaged with open-ended questions, reflective listening and was provided a safe space to share emotions and talk about her , Lauro. PLAN: (check all that apply) Continue with current services (defined as services in the past 12 months) Behavioral Health Integration Plan Internal Follow up with [facility] Patient Self Plan Patient to utilize skills provided in intervention , Patient to reach out to [facility] team as needed, Comply with medication , and Patient to engage in OP therapy . Pt is currently engaged in MH services with N at [facility] for OP individual therapy and psychiatry. Pt would like to follow-up with [facility] clinician as needed. Chronic gastroesophageal reflux disease 01/20/20 24 BMI 40.0-44.9, adult ([facility]) 02/12/2023 Healthcare maintenance 09/16/2022 Stage 3 chronic kidney disease ([facility]) 023 Chronic constipation 09/16/2022 Anxiety 06/13/2015 Coronary artery [...] were for 43 years. Her was Tenisha's DAIRY NUTRITIONIST and who provided financial support to their home. Tenisha finds it difficult to keep a routine and worries about the upcoming payments of her apartment. Currently engaged in MH services with [facility] / [facility]. Tenisha was engaged with open-ended questions, reflective listening and was provided a safe space to share emotions and talk about her . clinician reviewed and assessed for risk, current stressors, triggers and protective factors. Tenisha was recommended to continue with current services provided by [facility] at [facility]. clinician will be available if needed/requested during her next medical appointment. PLAN: (check all that apply) Continue with current services (defined as services in the past 12 months) . Pt is currently engaged with OP and psychiatry services at [facility] / [facility]. clinician will be available if requested next [...] were for 43 years. His was his DAIRY NUTRITIONIST and who provided financial support to their home. Tenisha finds it difficult to keep a routine and worries about the upcoming payments of her apartment. Currently engaged in MH services with [facility] / [facility]. Tenisha was engaged with open-ended questions, reflective listening and was provided a safe space to share emotions and talk about her , Lauro. PLAN: (check all that apply) Continue with current services (defined as services in the past 12 months) Behavioral Health Integration Plan Internal Follow up with [facility] Patient Self Plan Patient to utilize skills provided in intervention , Patient to reach out to [facility] team as needed, Comply with medication , and Patient to engage in OP therapy . Pt is currently engaged in MH services with [facility] at [facility] for OP individual therapy and psychiatry. Pt would like to follow-up with [facility] clinician as needed. 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 I have celestnio felix 01/20/[address] you [...] 72 06/25/2024 10:33 AM EST Temperature 36.5 C (97.7 F) 06/25/2024 10:33 AM EST Respiratory Rate 19 06/25/2024 10:33 AM EST Oxygen Saturation 97% 06/25/2024 10:33 AM EST Inhaled Oxygen Concentration - - Weight 87.7 kg (193 lb 6 oz) 06/25/2024 10:33 AM EST Height 160 cm (5' 3 ) 06/25/2024 10:33 AM EST Body Mass Index 34.25 06/25/2024 10:33 AM EST Plan of Treatment Health Maintenance Due Date Last Done Comments CT Colonography 1961 Colonoscopy 1961 Colorectal Cancer Screening 1961 FIT DNA/Cologuard 1961 FIT 1961 FOBT 1961 HIV Screening 1961 Sigmoidoscopy 1961 Disability Screening 1961 Diabetes: Foot Exam 1971 Eye Exam 1971 Alcohol/Substance Use Screening 1973 Hepatitis C Screening 1979 Pap Smear 1982 Cervical Cancer Screening 1991 HPV/Cotest 1991 Mammogram 2001 Zoster Vaccines (1 of 2) 2011 RSV Patients and Patients Aged 60 years or older (1 - Risk 60-74 years 1-dose series) 2021 Lipid Panel 03/21/2023 03/21/2022, 072 04/2021, 01/30/2021 Depression Monitoring 09/08/2024 03/08/2024, 024 Diabetes: Hemoglobin A1C 12/23/2024 024, 01/20/2024, 02/12/2023, Additional history exists SDOH Screening 01/19/2025 01/20/2024 Influenza Vaccine (#1) 2025 , 09/16/2022, 09/07/2021, Additional history exists DTaP/Tdap/Td Vaccines (2 - Td or Tdap) 06/13/2025 06/13/2015 Tobacco Screening 06/25/2025 06/25/2024 Hepatitis B Vaccines Completed 11/21/2016, 04/30/2016, 03/29/2016, Additional history exists Pneumococcal Vaccine: 50+ Years Completed 01/20/2024, 10/14/2013, 04/16/2012, Additional history exists COVID-19 Vaccine Completed 06/25/2024, 11/2023, 02/12/2023, Additional history exists HIB Vaccines Aged Out [...] patient's age to complete this topic Meningococcal B Vaccine Aged Out No l onger eligible based on patient's age to complete [...] current use of insulin, unspecified CKD stage ([facility]) LIPID PANEL, STANDARD Routine 03/21/2022 1:37 PM EDT from Last 3 Months or Most Recently Relevant to Health Maintenance Results * POCT HGB A1C (06/25/2024 10:35 AM EST) Hemoglobin A1C 5.5 4.0 - 6.0 % [...] [facility] Comment: Reference range: <100 Desirable range <100 mg/dL for primary prevention; <70 mg/dL for patients with CHD or diabetic patients with > or = 2 CHD risk factors. LDL-C is now calculated using the Shante calculation, which is a validated novel method providing better accuracy than the Friedewald equation in the estimation of LDL-C. Malcolm MARTINEZ et al. OLEKSANDR. 2013;310(19): 6123-3200 (http://[employer]ia.[employer]/faq/JPY321) Non-HDL Cholesterol 91 <130 mg/dL (calc) [facility] Comment: For patients with diabetes plus 1 major ASCVD risk factor, treating to a non-HDL-C goal of <100 mg/dL (LDL-C of <70 mg/dL) is considered a therapeutic option. Triglycerides 210(H) <150 mg/dL [facility] Comment: If a non-fasting specimen was collected, consider repeat triglyceride testing on a fasting specimen if clinically indicated. Eric et al. J. of Clin. Lipidol. 2015;9:129-169. 03/21/2022 1:37 PM EDT us Nan Shaw DO LAB BLOOD ORDERABLES Final R esult [facility] [address] from Last 3 Months or Most Recently Relevant to Health Maintenance Insurance Care Teams Tractor Mechanic Relationship Specialty Start Date End Date Nan Shaw DO [address] [place] [id number] PCP - General Family Medicine 07/30/12
--- OUTSIDE RECORDS SUMMARY | 2025-06-13 10:58 | XMS_ITS | Encounter Summary ---
Author Organization [employer] Address [address] [facility] [address] [place] [address] Care Team Providers Care Applications Trainer Name Role Phone AntonioNan johnston Primary Care Provider [phone] Reason for Visit * Reason Comments Med Refill Encounter Details Date Type Department Care Team (Late st Contact Info) Description 06/14/2023 Refill [facility] [address], [place] [phone] Name, MD Hamzah [address] [place] [address] Social History Tobacco Use Types Packs/Day Years [...] as of this encounter Care Teams Applications Trainer Relationship Specialty Start Date End Date Nan Shaw DO [address] [place] [address] PCP - General Family Medicine 07/30/12 documented as of this encounter
--- OUTSIDE RECORDS SUMMARY | 2025-06-13 10:58 | XMS_ITS | Encounter Summary ---
Author Organization [employer] Address [address] [facility] [address] [place] [address] Care Team Providers Care Chief Radiation Therapist Name Role Phone Nan Shaw DO Primary Care Provider Encounter Details Date Type Department Care Team (Late st Contact Info) Description 08/16/2022 Telephone [facility] [address] [place], [place] [phone] Nan Shaw DO [address] [place] [address] Social History Tobacco Use Types Packs/Day Years [...] on filedocumented in this encounter Care Teams Chief Radiation Therapist Relationship Specialty Start Date End Date Nan Shaw DO [address] [place], [place] [phone] PCP - General Family Medicine 07/30/12 documented as of this encounter
--- OUTSIDE RECORDS SUMMARY | 2025-06-13 10:58 | XMS_ITS | Encounter Summary ---
Author Organization [employer] Address [address] [facility] [address] [place] [address] Care Team Providers Care Teletypewriter Operator Name Role Phone Nan Shaw DO Primary Care Provider [phone] Encounter Details Date Type Department Care Team (Latest Contact Info) Description 11/24/2018 Abstract C CONVERSIONS Dental, Provider, DDS Social History Tobacco [...] on filedocumented in this encounter Care Teams Teletypewriter Operator Relationship Specialty Start Date End Date Nan Shaw DO [address] [place] [id number] PCP - General Family Medicine 07/30/12 documented as of this encounter
== END ==
LOC: HO.CARD 09:39
PROVIDERS: PCP Family Medicine
DX: I25.10 Atherosclerotic heart disease of native coronary artery without angina pectoris (principal); I50.9 Heart failure, unspecified; Z93.0 Tracheostomy status
CPT/HCPCS: 78452; 93017; A9500; J0280; J2785

== ENCOUNTER → 2025-06-13 09:42 | Outpatient (BNV) | payer MEDICAID, SELFPAY | PROVIDERS: PCP Family Medicine | DX: R06.02 Shortness of breath (principal); I49.3 Ventricular premature depolarization | CPT/HCPCS: 78452; 93016; 93018 ==

== ENCOUNTER 2025-07-26 13:05 | Outpatient (AMB) | payer MEDICAID, SELFPAY ==
--- NOTE | 2025-07-26 13:37 | MHC.OFFVIS ---
Vital Signs 07/26/25 13:38 Height 5 ft 4 in BMI Reason not done Patient refused/unable BP 122/62 Blood Pressure Location Lt brachial Pulse 73 Pulse Source Pulse Oximeter Intake Visit Reasons: F/u Abnormal Stress test Puff Ironer Required: Yes Puff Ironer Name: sparkle matthews [id number] Accompanied by: Daughter Allergies haloperidol (Haldol) Allergy (Severe, Verified 07/26/25 13:42) rash Penicillins Allergy (Severe, Verified 07/26/25 13:42) HIVES Sulfa (Sulfonamide Antibiotics) Allergy (Severe, Verified 07/26/25 13:42) Rash sulfamethoxazole (From BACTRIM) Allergy (Mild, Verified 07/26/25 13:42) ITCHING/HIVES trimethoprim (From BACTRIM) Allergy (Mild, Verified 07/26/25 13:42) ITCHING/HIVES From HALDOL Allergy (Mild, Uncoded 08/24/24 14:09) RASH HPI Comments Details: This is a 65-year-old female patient coming in for a follow-up visit, accompanied by her daughter and [employer]. A computer education professor was used throughout the visit. Patient with a history of hypertension, hyperlipidemia, diabetes, coronary artery disease with remote CABG, and HFpEF. Previously, given her ongoing symptoms of chest pain and reduced LVEF, patient underwent a myocardial perfusion study which isn't normal and therefore is here to discuss this further. At the last visit, for her ongoing sharp chest pain, patient's isosorbide was increased to 60 mg daily. Patient states that this is helped mildly however patient continues to have chest pain mostly with stress. Patient is otherwise denying any associated symptoms of shortness of breath, palpitations, dizziness, orthopnea, PND, leg edema, presyncope or syncope. Patient is reporting compliance all her medications. [facility] Medical History Pleuritic chest pain Tracheobronchitis Tracheostomy dependent Ischemic cardiomyopathy Fibroid uterus CHF (congestive heart failure) Urinary incontinence Asthma Anxiety Dysphagia Tracheal stenosis Chronic kidney disease, stage 3 Essential hypertension Hypothyroidism Type 2 diabetes mellitus with chronic kidney disease CAD (coronary artery disease) Dyslipidemia Surgical History Hx of section Hx of tracheostomy Hx of CABG Family History Father Diabetes CVD (cardiovascular disease) Mother Diabetes Hypertension Schizophrenia Social History Household Members: Spouse Alcohol intake: never Patient Tobacco Use Status: Never used Tobacco Review of Systems Const Denies daytime sleepiness, Denies difficulty sleeping, Denies snoring, Denies stops breathing during sleep and Denies weakness Card Denies chest pain, Denies rapid heart rate, Denies irregular heart rhythm, Denies claudication, Denies leg edema, Denies lightheadedness, Reports palpitations, Reports dyspnea, Reports dyspnea on exertion, Reports orthopnea, Denies paroxysmal nocturnal dyspnea and Denies slow heart rate Resp Denies cough, Reports dyspnea, Reports dyspnea on exertion and Denies snoring GI Reports no additional complaints, Denies hematochezia, Denies change in stool character and Denies dyspepsia Musc Denies abnormal gait, Denies muscle weakness and Denies numbness Neuro Denies abnormal gait, Denies numbness and Denies weakness Endo Reports palpitations Physical Exam Vital Signs: Last Vital Signs Pulse 73 07/26/25 13:38 BP 122/62 07/26/25 13:38 Const General: cooperative, healthy appearing, comfortable and no acute distress Orientation/consciousness: patient oriented x3 Limitations: wheelchair HEENT Head: Yes normal to inspection Neck Other: Trach present Neck: Yes trachea midline and Yes supple Chest Chest palpation & inspection: normal inspection of the chest Resp Effort & Inspection: normal respiratory effort Auscultation: clear to auscultation bilaterally, no crackles, no rales, no rhonchi and no wheezes Cardio Palpation: normal PMI Rate: regular rate Rhythm: regular rhythm Heart sounds: S1 normal heart sound present, S2 normal heart sound present, no click, no gallops, no murmurs and no rubs Peripheral pulses: Peripheral pulses 2+ throughout GI Inspection: Yes normal to inspection Palpation (GI): Soft to palpation Auscultation: normal bowel sounds Skin General skin exam: no rashes or lesions noted Neuro General: patient oriented x3 Extrem General: Yes normal to inspection, No no pedal edema and No calf tenderness Psych Appearance: grossly normal Mental Status: mental status grossly normal Speech and movement: Normal speech and movement present Assessment & Plan Assessment & Plan (1) CAD (coronary artery disease): Code(s): I25.10 - Atherosclerotic heart disease of [place] coronary artery without angina pectoris Category: Medical Plan: History of coronary artery disease with CABG. On 10/20/2024-patient underwent a echo study that showed a mildly to moderately reduced LV systolic function with the ejection fraction between 40-45% with impaired relaxation filling pattern. Given her new onset of LV systolic dysfunction and ongoing symptoms of chest discomfort, patient underwent a myocardial perfusion study on 06/13/2025 that showed apical infarct, mixed inferior defect suggestive of ischemia or infarct, basal to mid septal ischemia. Discussed above finding with the patient in great detail and recommended a diagnostic cardiac catheterization however patient is very hesitant with this as she states that she had a complication during CABG procedure where she needed a tracheostomy. Explained to the patient the procedure for cardiac catheterization in detail along with indications, risks, and benefits however patient continues to decline this at this time. Patient states that she will discuss this further with her daughters and we will get back to us about her decision. Continue with aspirin, Zetia, statin, isosorbide, lisinopril, metoprolol, and Lasix therapy. No recent labs and therefore we will update all this. Emphasized on med compliance. (2) Cardiomyopathy: Code(s): I42.9 - Cardiomyopathy, unspecified Category: Medical Plan: As above. (3) Essential hypertension: Code(s): I10 - Essential (primary) hypertension Category: Medical Plan: Blood pressure today is stable. Continue current medications with blood pressure goal less than 130/80. Advised on low-salt diet. (4) Dyslipidemia: Code(s): E78.5 - Hyperlipidemia, unspecified Category: Medical Plan: Continue statin and Zetia therapy with an LDL goal less than 70. No recent labs and therefore we will update her lipid profile. (5) Type 2 diabetes mellitus with chronic kidney disease: Code(s): E11.22 - Type 2 diabetes mellitus with diabetic chronic kidney disease Category: Medical Qualifiers: Diabetes mellitus lobsterman insulin use: with lobsterman use Chronic kidney disease stage: stage 3 (moderate) Chronic kidney disease stage 3 subtype: unspecified whether 3a or 3b Qualified Code(s): E11.22 - Type 2 diabetes mellitus with diabetic chronic kidney disease; N18.30 - Chronic kidney disease, stage 3 unspecified; Z79.4 - MCC (current) use of insulin Plan: Continue aggressive diabetes management with an A1c goal less than 7%, followed by PCP. Advised on heart healthy diet, med compliance, stress mitigation strategies, and aggressive management of vascular risk factors. Follow up in 3 months. In the interim, patient will call the office with any concerns or change in symptoms. Advised to seek ER care in case of exertional chest pain not resolved with rest. This note was generated using voice recognition software. While every effort has been made to ensure accuracy and proper cardroom attendant, there may be occasional errors that could affect the content or meaning of the described symptoms. Orders: Orders CA echo transthoracic complete 3 Months I42.9 - Cardiomyopathy, unspecified Complete Blood Count no Diff Today I25.10 - Atherosclerotic heart disease of [place] coronary artery without angina pectoris Basic Metabolic Panel Today I42.9 - Cardiomyopathy, unspecified Lipid Panel Today I25.10 - Atherosclerotic heart disease of [place] coronary artery without angina pectoris Coding Level of Care Code Est Pt Level 4 (06619) Complex visit Add On G2211 Diagnoses CAD (coronary artery disease) I25.10 Cardiomyopathy I42.9 Essential hypertension I10 Dyslipidemia E78.5 Type 2 diabetes mellitus with stage 3 chronic kidney disease, with long-term current use of insulin, unspecified whether stage 3a or 3b CKD E11.22; N18.30; Z79.4 Diabetes mellitus custodial insulin use: with custodial use Chronic kidney disease stage: stage 3 (moderate) Chronic kidney disease stage 3 subtype: unspecified whether 3a or 3b Time Spent (min) 35 Comment Time spent in reviewing the chart, test results, assessment, counseling and documentation.
[2025-07-26 13:38] VITALS: BP 122/62; PULSE 73
== END 2025-07-26 14:36 | disposition home or self-care (01) ==
LOC: HO.HCS 13:06
PROVIDERS: PCP Family Medicine
DX: I25.10 Atherosclerotic heart disease of native coronary artery without angina pectoris (principal); I42.9 Cardiomyopathy, unspecified; I10 Essential (primary) hypertension; E78.5 Hyperlipidemia, unspecified; E11.22 Type 2 diabetes mellitus with diabetic chronic kidney disease; N18.30 Chronic kidney disease, stage 3 unspecified; Z79.4 Long term (current) use of insulin
CPT/HCPCS: 99214

== ENCOUNTER → 2025-07-26 13:05 | Outpatient (BNVA) | payer MEDICAID, SELFPAY | PROVIDERS: PCP Family Medicine | DX: I42.9 Cardiomyopathy, unspecified (principal); I25.10 Atherosclerotic heart disease of native coronary artery without angina pectoris; I10 Essential (primary) hypertension; E11.22 Type 2 diabetes mellitus with diabetic chronic kidney disease; N18.30 Chronic kidney disease, stage 3 unspecified; E78.5 Hyperlipidemia, unspecified; Z95.1 Presence of aortocoronary bypass graft; Z79.4 Long term (current) use of insulin | CPT/HCPCS: 99212 ==